=== PATIENT | male | born 1950 | race Caucasian/White ===

== ENCOUNTER 2018-01-10 23:47 | Emergency (ER) | payer MEDICARE, OTHER ==
--- NOTE | 2018-01-10 23:57 | EDM.PDOC ---
ED HPI GENERAL MEDICAL PROBLEM - General Chief Complaint: Abdominal Pain Stated Complaint: STOMACH PAIN/SORE THROAT Time Seen by Provider: 01/11/18 01:00 - History of Present Illness INITIAL COMMENTS - FREE TEXT/NARRATIVE: HISTORY AND PHYSICAL: History of present illness: Patient is a 67-year-old male presents with a concern of upper abdominal pain this is poorly localized associated shortness of breath nausea or vomiting denies diarrhea he states that some [place] in the past with an extensive workup including cardiac it was negative patient states tonight also is concern of sore throat and acknowledges that he is extremely anxious Review of systems: As per history of present illness and below otherwise all systems reviewed and negative. Past medical history: As per history of present illness and as reviewed below otherwise noncontributory. Surgical history: As per history of present illness and as reviewed below otherwise noncontributory. Social history: No reported history of drug or alcohol abuse. Family history: As per history of present illness and as reviewed below otherwise noncontributory. Physical exam: HEENT: Atraumatic, normocephalic, pupils reactive, negative for conjunctival pallor or scleral icterus, mucous membranes moist, throat clear, neck supple, nontender, trachea midline. Lungs: Clear to auscultation, breath sounds equal bilaterally, chest nontender. Heart: S1S2, regular, negative for clicks, rubs, or JVD. Abdomen: Soft, nondistended, nontender. Negative for masses or hepatosplenomegaly. Negative for costovertebral tenderness. Pelvis: Stable nontender. Genitourinary: Deferred. Rectal: Deferred. Extremities: Atraumatic, negative for cords or calf pain. Neurovascular unremarkable. Neuro: Awake, alert, oriented. Cranial nerves II through XII unremarkable. Cerebellum unremarkable. Motor and sensory unremarkable throughout. Exam nonfocal. Diagnostics: CBC CMP troponin PT/INR lipase chest x-ray EKG CT abdomen and pelvis and rapid strep Therapeutics: IV O2 monitor Impression: #1 abdominal pain #2 sore throat Definitive disposition and diagnosis as appropriate pending reevaluation and review of above. abdomen Pain Score (Numeric/FACES): 8 - Related Data Allergies Allergy/AdvReac Type Severity Reaction Status Date / Time No Known Allergies Allergy Verified 01/10/18 23:55 Home Meds: Home Meds . [No Known Home Meds] 11/05/16 [History] Past Medical History HEENT History: Reports: Impaired Vision Respiratory History: Reports: Other (See Below) Other Respiratory History: none - Past Surgical History Musculoskeletal Surgical History: Reports: Shoulder Surgery, Other (See Below) Social & Family History - Family History Family Medical History: Noncontributory - Tobacco Use Smoking Status *Q: Former Smoker - Recreational Drug Use Recreational Drug Use: No ED ROS GENERAL - Review of Systems Review Of Systems: ROS reveals no pertinent complaints other than HPI. ED EXAM, GENERAL - Physical Exam Exam: See Below (See dictation) Course - Vital Signs Last Recorded V/S: Last Vital Signs Temp 36.4 C 01/11/18 01:12 Pulse 83 01/11/18 01:12 Resp 20 01/11/18 01:12 BP 136/91 H 01/11/18 01:12 Pulse Ox 96 01/11/18 01:12 - Orders/Labs/Meds Orders: Active Orders 24 hr Category Date Time Status EKG Documentation Completion [RC] STAT Care 01/10/18 23:56 Active Abdomen Pelvis wo Cont [CT] Stat Exams 01/11/18 00:07 Taken Chest 1V Frontal [CR] Stat Exams 01/10/18 23:56 Taken CULTURE STREP A CONFIRMATION [RM] Stat Lab 01/11/18 00:00 Results STREP SCRN A RAPID W CULT CONF [RM] Stat Lab 01/11/18 00:00 Ordered UA W/MICROSCOPIC [URIN] Stat Lab 01/11/18 00:43 Ordered Labs: Laboratory Tests 01/11/18 01/11/18 01/11/18 Range/Units 00:03 00:03 00:03 WBC 8.44 (4.0-11.0) K/uL RBC 5.40 (4.50-5.90) M/uL Hgb 16.7 (13.0-17.0) g/dL Hct 49.0 (38.0-50.0) % MCV 90.7 (80.0-98.0) fL MCH 30.9 (27.0-32.0) pg MCHC 34.1 (31.0-37.0) g/dL RDW Std Deviation 39.8 (28.0-62.0) fl RDW Coeff of Silva 12 (11.0-15.0) % Plt Count 262 (150-400) K/uL MPV 9.60 (7.40-12.00) fL Neut % (Auto) 64.7 (48.0-80.0) % Lymph % (Auto) 25.6 (16.0-40.0) % [place] % (Auto) 9.1 (0.0-15.0) % Eos % (Auto) 0.2 (0.0-7.0) % Baso % (Auto) 0.4 (0.0-1.5) % Neut # (Auto) 5.5 (1.4-5.7) K/uL Lymph # (Auto) 2.2 (0.6-2.4) K/uL [place] # (Auto) 0.8 (0.0-0.8) K/uL Eos # (Auto) 0.0 (0.0-0.7) K/uL Baso # (Auto) 0.0 (0.0-0.1) K/uL INR 0.97 Sodium 139 (136-148) mmol/L Potassium 3.7 (3.5-5.1) mmol/L Chloride 103 (98-107) mmol/L Carbon Dioxide 24.0 (21.0-32.0) mmol/L BUN 13 (7.0-18.0) mg/dL Creatinine 1.0 (0.8-1.3) mg/dL Est Cr Clr Drug Dosing 84.48 mL/min Estimated GFR (MDRD) > 60.0 ml/min Glucose 133 H (74-106) mg/dL Calcium 9.2 (8.5-10.1) mg/dL Total Bilirubin 1.1 H (0.2-1.0) mg/dL AST 56 H (15-37) IU/L ALT 45 (14-63) IU/L Alkaline Phosphatase 61 (46-116) U/L Troponin I < 0.050 (0.000-0.056) ng/mL Total Protein 7.7 (6.4-8.2) g/dL Albumin 3.9 (3.4-5.0) g/dL Globulin 3.8 H (2.0-3.5) g/dL Albumin/Globulin Ratio 1.0 L (1.3-2.8) Lipase 138 (73-393) U/L Urine Color Urine Appearance Urine pH (5.0-8.0) Ur Specific Raven (1.001-1.035) Urine Protein (NEGATIVE) mg/dL Urine Glucose (UA) (NEGATIVE) mg/dL Urine Ketones (NEGATIVE) mg/dL Urine Occult Blood (NEGATIVE) Urine Nitrite (NEGATIVE) Urine Bilirubin (NEGATIVE) Urine Ictotest Urine Urobilinogen (<2.0) EU/dL Ur Leukocyte Esterase (NEGATIVE) Urine RBC (0-2/HPF) Urine WBC (0-5/HPF) Ur Epithelial Cells (NONE-FEW) Urine Bacteria (NEGATIVE) Urine Mucus (NONE-MOD) 01/11/18 Range/Units 00:43 WBC (4.0-11.0) K/uL RBC (4.50-5.90) M/uL Hgb (13.0-17.0) g/dL Hct (38.0-50.0) % MCV (80.0-98.0) fL MCH (27.0-32.0) pg MCHC (31.0-37.0) g/dL RDW Std Deviation (28.0-62.0) fl RDW Coeff of Silva (11.0-15.0) % Plt Count (150-400) K/uL MPV (7.40-12.00) fL Neut % (Auto) (48.0-80.0) % Lymph % (Auto) (16.0-40.0) % [place] % (Auto) (0.0-15.0) % Eos % (Auto) (0.0-7.0) % Baso % (Auto) (0.0-1.5) % Neut # (Auto) (1.4-5.7) K/uL Lymph # (Auto) (0.6-2.4) K/uL [place] # (Auto) (0.0-0.8) K/uL Eos # (Auto) (0.0-0.7) K/uL Baso # (Auto) (0.0-0.1) K/uL INR Sodium (136-148) mmol/L Potassium (3.5-5.1) mmol/L Chloride (98-107) mmol/L Carbon Dioxide (21.0-32.0) mmol/L BUN (7.0-18.0) mg/dL Creatinine (0.8-1.3) mg/dL Est Cr Clr Drug Dosing mL/min Estimated GFR (MDRD) ml/min Glucose (74-106) mg/dL Calcium (8.5-10.1) mg/dL Total Bilirubin (0.2-1.0) mg/dL AST (15-37) IU/L ALT (14-63) IU/L Alkaline Phosphatase (46-116) U/L Troponin I (0.000-0.056) ng/mL Total Protein (6.4-8.2) g/dL Albumin (3.4-5.0) g/dL Globulin (2.0-3.5) g/dL Albumin/Globulin Ratio (1.3-2.8) Lipase (73-393) U/L Urine Color YELLOW Urine Appearance CLEAR Urine pH 5.5 (5.0-8.0) Ur Specific [place] >= 1.030 (1.001-1.035) Urine Protein TRACE (NEGATIVE) mg/dL Urine Glucose (UA) NEGATIVE (NEGATIVE) mg/dL Urine Ketones 15 H (NEGATIVE) mg/dL Urine Occult Blood TRACE-INTACT (NEGATIVE) Urine Nitrite NEGATIVE (NEGATIVE) Urine Bilirubin SMALL H (NEGATIVE) Urine Ictotest NEGATIVE Urine Urobilinogen 0.2 (<2.0) EU/dL Ur Leukocyte Esterase NEGATIVE (NEGATIVE) Urine RBC 0-1 (0-2/HPF) Urine WBC 0-1 (0-5/HPF) Ur Epithelial Cells RARE (NONE-FEW) Urine Bacteria FEW (NEGATIVE) Urine Mucus MODERATE (NONE-MOD) Departure - Departure Time of Disposition: 06:38 Disposition: Home, Self-Care 01 Clinical Impression: Cholelithiasis - Discharge Information Instructions: Cholelithiasis, [id number] Referrals: PCP,None [Primary Care Provider] - Forms: ED Department Discharge Additional Instructions: Push fluids, avoid fried/fatty foods. Follow up with general surgery within the next week[place] [address] - My Orders Last 24 Hours: My Active Orders 01/10/18 23:56 EKG Documentation Completion [RC] STAT Chest 1V Frontal [CR] Stat 01/11/18 00:00 CULTURE STREP A CONFIRMATION [RM] Stat STREP SCRN A RAPID W CULT CONF [RM] Stat 01/11/18 00:07 Abdomen Pelvis wo Cont [CT] Stat 01/11/18 00:43 UA W/MICROSCOPIC [URIN] Stat - Assessment/Plan Last 24 Hours: My Active Orders 01/10/18 23:56 EKG Documentation Completion [RC] STAT Chest 1V Frontal [CR] Stat 01/11/18 00:00 CULTURE STREP A CONFIRMATION [RM] Stat STREP SCRN A RAPID W CULT CONF [RM] Stat 01/11/18 00:07 Abdomen Pelvis wo Cont [CT] Stat 01/11/18 00:43 UA W/MICROSCOPIC [URIN] Stat
[2018-01-11 00:47] LABS: CHLORIDE,CL 103 mmol/L (98-107); SODIUM,NA 139 mmol/L (136-148)
[2018-01-11 01:13] VITALS: BP 136/91
--- NOTE | 2018-01-11 13:14 | CR ---
EXAM DATE: 01/10/18 PATIENT'S AGE: 67 Patient: YAJAIRA ARDON Facility: [place], [place] Site . Site : 1950 Study: XRay Chest [id number]/17/2018 12:10:44 AM Ordering Physician: Shanique Morse Final Report: Indication: Generalized abdominal pain, chest pain Technique: Chest 1 view Comparison: November 05, 2016. Findings/Impression: Stable cardiomediastinal silhouette. Low lung volumes. No focal infiltrate, effusion, or pneumothorax. Dictated by Jenn Burch MD @ Jan 11 2018 12:12AM (Electronic Signature) Report Signed by Proxy. TAWNYA
--- NOTE | 2018-01-11 13:16 | CT ---
EXAM DATE: 01/10/18 PATIENT'S AGE: 67 Patient: YAJAIRA ARDON Facility: [place], [place] Site . Site : 1950 Study: CT Abdomen/Pelvis W/O [id number]/17/2018 12:28:12 AM Ordering Physician: Shanique Morse Final Report: INDICATION: Right upper quadrant. TECHNIQUE: CT abdomen and pelvis without contrast. COMPARISON: None FINDINGS: Lower chest: Unremarkable. Liver: Unremarkable. Spleen: Unremarkable. Pancreas: Unremarkable. Gallbladder and bile ducts: Cholelithiasis. Kidneys: Punctate nonobstructing calculus mid zone right kidney. No hydronephrosis. 3.0 centimeter left renal cyst. Adrenal glands: Unremarkable. GI tract: Unremarkable. Appendix is normal. Vascular structures: Unremarkable. Lymph nodes: Unremarkable. Miscellaneous: Small fat containing umbilical hernia. No free air or significant free fluid. Pelvic Organs: Unremarkable. Bones: Grade 1 anterior listhesis L5 over S1. IMPRESSION: Cholelithiasis and a normal-appearing gallbladder. Normal common bile duct. No findings to explain the patient`s symptoms. Grade 1 anterolisthesis L5 over S1. Punctate nonobstructing calculus mid zone right kidney appear Dictated by Blake Morocho MD @ 01/11/2018 12:39:01 AM Dictated by: Blake Morocho MD @ 01/11/2018 00:39:09 (Electronic Signature) Report Signed by Proxy. [facility]PITALSavita
== END 2018-01-11 01:16 | disposition home or self-care (01) ==
LOC: MW.ED 23:47
DX: K80.20 Calculus of gallbladder without cholecystitis without obstruction (principal); J02.9 Acute pharyngitis, unspecified; Z87.891 Personal history of nicotine dependence
CPT/HCPCS: 71045; 71045-26; 74176; 74176-26; 80053; 81001; 83690; 84484; 85025; 85610; 87081; 87880; 93005; 99283; 99284-25

== ENCOUNTER 2018-02-03 11:27 | Day surgery (SDC) | payer MEDICARE, OTHER ==
[~2018-02-03 11:27] MED LIST: Lactated Ringers 1,000 ML IV SCH; Midazolam 1 MG/ML 2 ML SDV ONE; Ondansetron 4 MG/2 ML SDV ONE; Propofol 200 MG/20 ML SDV ONE; Sodium Chloride 0.9% 10 ML Syringe FLUSH PRN; Sodium Chloride 0.9% 2.5 ML Syringe FLUSH PRN; fentaNYL 100 MCG/2 ML SDV ONE
--- NOTE | 2018-02-03 12:05 | PCM.PREANE ---
Preanesthetic Assessment - Anesthesia/Transfusion/Family Hx Anesthesia History: Prior Anesthesia Without Reaction Family History of Anesthesia Reaction: No Transfusion History: No Prior Transfusion(s) Intubation History: Unknown - Review of Systems General: No Symptoms Pulmonary: No Symptoms Cardiovascular: No Symptoms Gastrointestinal: Difficulty Swallowing Neurological: No Symptoms Other: Reports: None - Physical Assessment Height: 1.88 m Weight: 113.852 kg ASA Class: 2 Mental Status: Alert & Oriented x3 Airway Class: Mallampati = 2 Dentition: Reports: Normal Dentition, [place](s) (upper leftx1, lower rightx1) Thyro-Mental Finger Breadths: 3 Mouth Opening Finger Breadths: 3 ROM/Head Extension: Full Lungs: Clear to Auscultation, Normal Respiratory Effort Cardiovascular: Regular Rate, Regular Rhythm - Allergies Allergies/Adverse Reactions: Allergies Allergy/AdvReac Type Severity Reaction Status Date / Time No Known Allergies Allergy Verified 01/31/18 13:48 - Blood Blood Available: No - Anesthesia Plan Pre-Op Medication Ordered: None - Acknowledgements Anesthesia Type Planned: MAC Pt an Appropriate Candidate for the Planned Anesthesia: Yes Alternatives and Risks of Anesthesia Discussed w Pt/Guardian: Yes Pt/Guardian Understands and Agrees with Anesthesia Plan: Yes PreAnesthesia Questionnaire HEENT History: Reports: Impaired Vision Other HEENT History: wears glasses Respiratory History: Reports: Bronchitis, Recurrent Gastrointestinal History: Reports: Cholelithiasis, GERD, Other (See Below) Other Gastrointestinal History: occasional reflux, epigastric pain due to cholelithiasis Musculoskeletal History: Reports: Arthritis, Other (See Below) (some back pain) Endocrine/Metabolic History: Reports: Obesity/BMI 30+ - Past Surgical History Head Surgeries/Procedures: Reports: None HEENT Surgical History: Reports: Naso-Sinus Surgery, Tonsillectomy Musculoskeletal Surgical History: Reports: Shoulder Surgery, Other (See Below) Other Musculoskeletal Surgeries/Procedures:: knee surgery, ORIF left arm, & rt ulnar nerve surgery - SUBSTANCE USE Smoking Status *Q: Former Smoker Recreational Drug Use History: No - HOME MEDS Home Medications: Home Meds Omeprazole 20 mg PO DAILY 01/31/18 [History] - CURRENT (IN HOUSE) MEDS Current Meds: Current Medications Lactated Ringer's (Ringers, Lactated) 1,000 mls @ 125 mls/hr IV ASDIRECTED [facility] Last Admin: 02/03/18 11:44 Dose: 125 mls/hr Sodium Chloride (Saline Flush) 10 ml FLUSH ASDIRECTED PRN PRN Reason: Keep Vein Open Sodium Chloride (Saline Flush) 2.5 ml FLUSH ASDIRECTED PRN PRN Reason: Keep Vein Open Sodium Chloride (Saline Flush) 10 ml FLUSH ASDIRECTED PRN PRN Reason: Keep Vein Open Sodium Chloride (Saline Flush) 2.5 ml FLUSH ASDIRECTED PRN PRN Reason: Keep Vein Open Discontinued Medications Fentanyl (Sublimaze) Confirm Administered Dose 100 mcg .ROUTE .STK-MED ONE Stop: 02/03/18 11:22 Midazolam HCl (Versed 1 Mg/Ml) Confirm Administered Dose 2 mg .ROUTE .STK-MED ONE Stop: 02/03/18 11:22 Ondansetron HCl (Zofran) Confirm Administered Dose 4 mg .ROUTE .STK-MED ONE Stop: 02/03/18 11:22 Propofol (Diprivan 20 Ml) Confirm Administered Dose 400 mg .ROUTE .STK-MED ONE Stop: 02/03/18 11:22
--- NOTE | 2018-02-03 14:00 | PCM.OPNOTE ---
- General Post-Op/Procedure Note Date of Surgery/Procedure: 02/03/18 Operative Procedure(s): Diagnostic EGD and screening colonoscopy Findings: Normal egd and sigmoid colon polyp Pre Op Diagnosis: Epigastric pain, screening colonoscopy Post-Op Diagnosis: Sigmoid colon polyp Anesthesia Technique: MAC Primary Surgeon: Trena Ojeda Condition: Good
[2018-02-03 14:26] VITALS: BP 139/98
--- NOTE | 2018-02-03 14:52 | OR ---
SURGEON: CALEB BAIN MD DATE OF PROCEDURE: 02/03/2018 PREOPERATIVE DIAGNOSES: 1. Epigastric pain. 2. Screening colonoscopy. POSTOPERATIVE DIAGNOSES: 1. Normal esophagogastroduodenoscopy. 2. Sigmoid colon polyp. PROCEDURES PERFORMED: Diagnostic esophagogastroduodenoscopy and screening colonoscopy. ANESTHESIA: MAC. INSTRUMENT USED: Olympus endoscope and colonoscope. EXTENT OF THE EXAM: To the second portion of duodenum, to the cecum. PREPARATION: Good. LIMITATIONS: None. INDICATION FOR EXAMINATION: The patient is a 67-year-old male, who presented to the emergency room with severe epigastric pain. Workup revealed cholelithiasis; however, his symptoms were concerning for gastritis or peptic ulcer disease. The patient has never had a colonoscopy. We discussed doing a diagnostic EGD and a screening colonoscopy at the same time. We discussed the procedures as well as expected perioperative course. We discussed the risks including bleeding, infection, or damage to surrounding structures including perforation. The patient verbalized understanding and wishes to proceed. PROCEDURE IN DETAIL: The patient was brought to the endoscopy suite and placed in a left lateral decubitus position. A time-out was completed verifying the patient's name, age, date of , allergies, and procedure to be performed. Monitored anesthesia care was induced and continuous oxygen was provided via nasal cannula. A bite block was placed in the patient's mouth before falling asleep. After adequate sedation was achieved, a well lubricated endoscope was placed in the patient's mouth and advanced under direct visualization to the level of the second portion of the duodenum. This appeared normal and a photograph was taken. The scope was then fully withdrawn while examining the color, texture, anatomy, and integrity of the mucosa of the upper GI tract. Intestinal mucosa appeared normal. The scope was brought into the stomach and a photograph was taken of the pylorus as well as the GE junction. Both appeared normal. There was no evidence of any ulceration or inflammation in the stomach. Biopsies were taken of the gastric antrum, body, and fundus, and sent for histologic review. The scope was brought into the distal esophagus, and a photograph taken of the GE junction. This appeared normal. There was no evidence of esophagitis along the distal esophagus. The remainder of the esophageal mucosa was free of pathology. The scope was removed and this portion of procedure terminated. A digital rectal exam was performed. This exam was within normal limits. A well lubricated colonoscope was inserted into the rectum and advanced under direct visualization to the level of the cecum. The cecum was identified by both visual and anatomic landmarks. A photograph was taken of the cecal cap. Due to looping of the scope more proximally, I was unable to retroflex the scope within the cecum. The scope was then fully withdrawn while examining the color, texture, anatomy, and integrity of the mucosa from the cecum to the anal canal. The patient was found to have a small 2 to 3 mm sessile polyp within the sigmoid colon. This was removed using a cold biopsy forceps. The scope was then brought into the rectum and retroflexed to allow visualization of the anal canal opening. This appeared normal and a photograph was taken. The scope was then straightened out and fully withdrawn. The cecum to anus time was 9 minutes. The patient tolerated procedure well and taken to PACU in stable condition. ENDOSCOPIC DIAGNOSES: 1. Normal esophagogastroduodenoscopy. 2. Sigmoid colon polyp. RECOMMENDATIONS: Follow up in clinic in 2 weeks. The patient will undergo a laparoscopic cholecystectomy on the of this month. GORDON GARRISON /[id number]
== END 2018-02-03 14:20 | disposition home or self-care (01) ==
LOC: MW.SDS 11:27
PROVIDERS: ATTEND Surgery
DX: R10.13 Epigastric pain (principal); Z12.11 Encounter for screening for malignant neoplasm of colon; D12.5 Benign neoplasm of sigmoid colon; K80.20 Calculus of gallbladder without cholecystitis without obstruction; I25.10 Atherosclerotic heart disease of native coronary artery without angina pectoris; K21.9 Gastro-esophageal reflux disease without esophagitis; Z87.891 Personal history of nicotine dependence; Z79.899 Other long term (current) drug therapy
CPT/HCPCS: 43239; 45380; J2250; J2405; J3010; J7120; J2704

== ENCOUNTER 2018-02-10 07:10 | Day surgery (SDC) | payer MEDICARE, OTHER ==
[~2018-02-10 07:10] MED LIST changes: -Midazolam 1 MG/ML 2 ML SDV ONE; -Ondansetron 4 MG/2 ML SDV ONE; -Propofol 200 MG/20 ML SDV ONE; +ceFAZolin 2 GM in Premix Bag 1 BAG IV ONE; -fentaNYL 100 MCG/2 ML SDV ONE
[2018-02-10] MEDS ORDERED: Bupivacaine 0.5% 30 ML SDV ONE (07:23)
[2018-02-10] MEDS ORDERED: Lidocaine 2% 5 ML SDV ONE (07:30)
[2018-02-10] MEDS ORDERED: fentaNYL 100 MCG/2 ML SDV ONE (07:30)
[2018-02-10] MEDS ORDERED: Propofol 200 MG/20 ML SDV ONE (07:30)
[2018-02-10] MEDS ORDERED: Midazolam 1 MG/ML 2 ML SDV ONE (07:31)
[2018-02-10] MEDS ORDERED: Rocuronium 10 MG/ML 10 ML Syringe ONE (07:32)
[2018-02-10] MEDS ORDERED: Neostigmine Methylsulfate 1 MG/ML 5 ML Syringe ONE (07:32)
[2018-02-10] MEDS ORDERED: Ondansetron 4 MG/2 ML SDV ONE ×2 (07:32→08:06)
[2018-02-10] MEDS ORDERED: Glycopyrrolate 0.2 MG/ML SDV ONE (07:32)
[2018-02-10] MEDS ORDERED: Ketorolac 30 MG/ML SDV ONE (07:32)
[2018-02-10] MEDS ORDERED: cefOXitin 0 ML ONE (07:41)
[2018-02-10] MEDS ORDERED: ceFAZolin/Dextrose,Iso-Osmotic 2 GM/50 ML Duplex Bag IV ONE (07:41)
--- NOTE | 2018-02-10 07:42 | PCM.PREANE ---
Preanesthetic Assessment - Anesthesia/Transfusion/Family Hx Anesthesia History: Prior Anesthesia Reaction Type of Anesthesia Reaction: Excessive Nausea/Vomiting Family History of Anesthesia Reaction: No Transfusion History: No Prior Transfusion(s) Intubation History: Unknown - Review of Systems General: No Symptoms Pulmonary: No Symptoms Cardiovascular: No Symptoms Gastrointestinal: No Symptoms Neurological: No Symptoms Other: Reports: None - Physical Assessment O2 Sat by Pulse Oximetry: 93 Respiratory Rate: 16 Vital Signs: Last Vital Signs Temp 36 C 02/10/18 07:17 Pulse 82 02/10/18 07:17 Resp 16 02/10/18 07:17 BP 137/91 H 02/10/18 07:17 Pulse Ox 93 L 02/10/18 07:17 Height: 1.88 m Weight: 113.852 kg ASA Class: 2 Mental Status: Alert & Oriented x3 Dentition: Reports: Normal Dentition Lungs: Clear to Auscultation, Normal Respiratory Effort Cardiovascular: Regular Rate, Regular Rhythm - Allergies Allergies/Adverse Reactions: Allergies Allergy/AdvReac Type Severity Reaction Status Date / Time No Known Allergies Allergy Verified 02/07/18 10:34 - Anesthesia Plan Pre-Op Medication Ordered: None - Acknowledgements Anesthesia Type Planned: General Anesthesia Pt an Appropriate Candidate for the Planned Anesthesia: Yes Alternatives and Risks of Anesthesia Discussed w Pt/Guardian: Yes Pt/Guardian Understands and Agrees with Anesthesia Plan: Yes Additional Comments: PMH: heartburn without reflux sx. HLD, Has had PONV with one of his ortho surgeries PreAnesthesia Questionnaire HEENT History: Reports: Impaired Vision, Other (See Below) Other HEENT History: wears glasses Respiratory History: Reports: Other (See Below) Other Respiratory History: none Gastrointestinal History: Reports: Cholelithiasis Other Gastrointestinal History: occasional reflux, epigastric pain due to cholelithiasis Genitourinary History: Reports: None Musculoskeletal History: Reports: Fracture Endocrine/Metabolic History: Reports: Obesity/BMI 30+ - Past Surgical History Head Surgeries/Procedures: Reports: None HEENT Surgical History: Reports: Tonsillectomy GI Surgical History: Reports: Colonoscopy, EGD Musculoskeletal Surgical History: Reports: ORIF, Other (See Below) Other Musculoskeletal Surgeries/Procedures:: knee sx - SUBSTANCE USE Smoking Status *Q: Former Smoker Tobacco Use Within Last Twelve Months: No Recreational Drug Use History: No - HOME MEDS Home Medications: Home Meds Omeprazole 20 mg PO ASDIRECTED PRN 01/31/18 [History] - CURRENT (IN HOUSE) MEDS Current Meds: Current Medications Sodium Chloride (Saline Flush) 10 ml FLUSH ASDIRECTED PRN PRN Reason: Keep Vein Open Sodium Chloride (Saline Flush) 2.5 ml FLUSH ASDIRECTED PRN PRN Reason: Keep Vein Open Discontinued Medications Bupivacaine HCl (Marcaine 0.5%) Confirm Administered Dose 30 ml .ROUTE .STK-MED ONE Stop: 02/10/18 07:24 Fentanyl (Sublimaze) Confirm Administered Dose 500 mcg .ROUTE .STK-MED ONE Stop: 02/10/18 07:31 Glycopyrrolate (Robinul) Confirm Administered Dose 0.6 mg .ROUTE .STK-MED ONE Stop: 02/10/18 07:33 Cefazolin Sodium/Dextrose 2 gm (/ Premix) 50 mls @ 100 mls/hr IV ONETIME ONE Stop: 02/09/18 13:28 Lactated Ringer's (Ringers, Lactated) 1,000 mls @ 125 mls/hr IV ASDIRECTED [facility] Ketorolac Tromethamine (Toradol) Confirm Administered Dose 30 mg .ROUTE .STK- MED ONE Stop: 02/10/18 07:33 Lidocaine (Xylocaine-Mpf 2%) Confirm Administered Dose 10 ml .ROUTE .STK-MED ONE Stop: 02/10/18 07:31 Midazolam HCl (Versed 1 Mg/Ml) Confirm Administered Dose 2 mg .ROUTE .STK-MED ONE Stop: 02/10/18 07:32 Neostigmine Methylsulfate (Neostigmine) Confirm Administered Dose 5 mg .ROUTE .STK-MED ONE Stop: 02/10/18 07:33 Ondansetron HCl (Zofran) Confirm Administered Dose 4 mg .ROUTE .STK-MED ONE Stop: 02/10/18 07:33 Propofol (Diprivan 20 Ml) Confirm Administered Dose 400 mg .ROUTE .STK-MED ONE Stop: 02/10/18 07:31 Rocuronium [place] (Zemuron) Confirm Administered Dose 100 mg .ROUTE .STK-MED ONE Stop: 02/10/18 07:33
[2018-02-10] MEDS ORDERED: Labetalol 100 MG/20 ML MDV ONE (08:05)
[2018-02-10] MEDS ORDERED: ePHEDrine 50 MG/ML SDV ONE (08:15)
[2018-02-10] MEDS ORDERED: fentaNYL 100 MCG/2 ML SDV IVPUSH PRN (08:24)
[2018-02-10] MEDS ORDERED: Sugammadex Sodium 200 MG/2 ML VIAL ONE (08:55)
[2018-02-10] MEDS ORDERED: Acetaminophen/oxyCODONE 325-5 MG Tab PO PRN (09:24)
--- NOTE | 2018-02-10 09:27 | PCM.OPNOTE ---
<Isaiah Stone Z - Last Filed: 02/10/18 09:25> - General Post-Op/Procedure Note Date of Surgery/Procedure: 02/10/18 Operative Procedure(s): Lap Melly Anesthesia Technique: General LMA Primary Surgeon: Trena Ojeda Fluid Replacement, Intraop: 1,200 EBL in mLs: 10 Condition: Good <Trena Ojeda M - Last Filed: 02/10/18 09:42> - General Post-Op/Procedure Note Findings: Normal appearing gallbladder Pre Op Diagnosis: Symptomatic cholelithiasis Post-Op Diagnosis: same Anesthesia Technique: General ET Tube Output, Urine Amount: 30 Free Text/Narrative:: Intake & Output 02/09/18 02/10/18 02/10/18 22:59 06:59 14:59 Intake Total 3100 Balance 3100
--- NOTE | 2018-02-10 09:36 | PCM.POSTAN ---
POST ANESTHESIA ASSESSMENT - MENTAL STATUS Mental Status: Alert, Oriented - VITAL SIGNS Pulse Rate: 77 SaO2: 94 (room air) Resp Rate: 16 Blood Pressure: 131/91 - RESPIRATORY Respiratory Status: Respiratory Rate WNL, Airway Patent, O2 Saturation Stable - CARDIOVASCULAR CV Status: Pulse Rate WNL, Blood Pressure Stable, Elevated Blood Pressure Free Text/Narrative:: bp slightly elevated at 131/91 had labetalol 7.5 after intubation will go to pahase 2 and let him settle and monitor - GASTROINTESTINAL GI Status: No Symptoms - PAIN Pain Score: 0 - POST OP HYDRATION Hydration Status: Adequate & Stable
--- NOTE | 2018-02-10 10:21 | OR ---
SURGEON: CALEB BAIN MD DATE OF PROCEDURE: 02/10/2018 PREOPERATIVE DIAGNOSIS: Symptomatic cholelithiasis. POSTOPERATIVE DIAGNOSIS: Symptomatic cholelithiasis. PROCEDURE PERFORMED: Laparoscopic cholecystectomy. SCAFFOLD WORKER: salon shampoo assistant: Isaiah Stone MD., residential leasing manager. ANESTHESIA: General endotracheal anesthesia. FLUIDS: 1800 mL of crystalloid. ESTIMATED BLOOD LOSS: 10 mL. URINE OUTPUT: 30 mL. FINDINGS: Normal appearing gallbladder. COMPLICATIONS: None. INDICATIONS: The patient is a 67-year-old male, who presented to the emergency room with severe epigastric pain. A CT scan of the abdomen showed cholelithiasis. A thorough workup was performed including an EGD to rule out peptic ulcer disease and gastritis. The diagnosis of symptomatic cholelithiasis was made. The patient and I discussed the pathophysiology of biliary disease. We discussed the need for cholecystectomy. We discussed the laparoscopic and open approaches. Should I be unable to perform it safely laparoscopically, we would convert to open. The patient and I discussed the expected perioperative course, and risks including bleeding, infection, or damage to surrounding structures. The patient verbalized understanding and wishes to proceed. PROCEDURE IN DETAIL: The patient was brought in to the OR, placed on the OR table in supine position. A time-out was completed verifying the patient's name, age, date of , allergies, and procedure to be performed. Monitored general endotracheal anesthesia was induced. The left arm was tucked to the patient's side and a Hackett catheter placed. The abdomen was prepped and draped in usual standard fashion. The infraumbilical fold was first anesthetized with 0.5% Marcaine plain. An 11 blade was used to make an incision along the infraumbilical fold. Cautery was used to dissect down to the level of subcutaneous fat. Retractors were used to bluntly dissect down to the level of fascia. The fascia was elevated with Brendon's and incised sharply with curved De La Rosa scissors. Entry into the abdomen was palpated and a 12 mm Denise trocar was placed in the abdomen. Stay sutures were placed on either side of the fascia using 0 Vicryl suture. The abdomen was insufflated to a pressure of 13 mmHg. A 5 mm, 30- degree scope was inserted in the abdomen and I inspected the area underneath my initial trocar placement. There was no damage to surrounding structures noted. The patient was then placed into reverse Trendelenburg position and airplaned slightly to the left. 5 mm trocars were placed in the following locations, one in the epigastric area, one in the right flank, and one along two fingerbreadths below the right subcostal margin in the midclavicular line. The dome of the gallbladder was grasped with an atraumatic grasper through the right flank port and lifted above the liver. This exposed the infundibulum. The patient's gallbladder was lying somewhat laterally. Because of this, I first started my dissection along the lateral border of the body of the gallbladder. Doing this, I was then able to clear away the peritoneal attachments along the back wall of the cystic duct and artery. I then manipulated the gallbladder such that I could see the medial side of the infundibulum. Using combination of blunt dissection and hook cautery, I was then able to clear away the tissue around the cystic duct and artery. Once my critical view was achieved, I then doubly clipped and ligated the cystic duct and artery. The gallbladder was then removed from the gallbladder fossa using electrocautery. A small rent was made in the gallbladder wall and clear bile was spilled in the abdomen. Once the gallbladder was completely freed up from the liver, it was placed in an EndoCatch bag and removed through the infraumbilical port site. The 12 mm Denise trocar was replaced and I inspected my operative field. He appeared to be hemostatic. I then irrigated the abdomen with normal saline until it ran clear. The 5 mm trocars were removed under direct visualization. The abdomen was allowed to desufflate and the 12 mm trocar was removed. The fascia at the infraumbilical port site was closed with interrupted 0 Vicryl sutures. The subcutaneous fat was closed with interrupted 3-0 Vicryl suture. The skin was closed with a running 4-0 Monocryl stitch. The port sites were then closed with interrupted 4-0 Monocryl stitches. The Steri-Strips and sterile dressings were applied. The patient tolerated the procedure well and was taken to PACU in stable condition. GORDON GARRISON /[id number]
[2018-02-10 11:40] VITALS: BP 131/91
--- NOTE | 2018-02-10 11:40 | PCM48HPAN ---
Post Anesthesia Note - EVALUATION WITHIN 48HRS OF ANESTHETIC Vital Signs in Normal Range: Yes Patient Participated in Evaluation: Yes Respiratory Function Stable: Yes Airway Patent: Yes Cardiovascular Function Stable: Yes Hydration Status Stable: Yes Pain Control Satisfactory: Yes Nausea and Vomiting Control Satisfactory: Yes Mental Status Recovered: Yes Pulse Rate: 77 Resp Rate: 14 Blood Pressure: 131/91
== END 2018-02-10 11:10 | disposition home or self-care (01) ==
LOC: MW.SDS 07:10
PROVIDERS: ATTEND Surgery
DX: K80.10 Calculus of gallbladder with chronic cholecystitis without obstruction (principal); E78.5 Hyperlipidemia, unspecified; K21.9 Gastro-esophageal reflux disease without esophagitis; E66.9 Obesity, unspecified; Z68.32 Body mass index [BMI] 32.0-32.9, adult; Z90.89 Acquired absence of other organs; Z87.891 Personal history of nicotine dependence
CPT/HCPCS: J0690; J1885; J2250; J2405; J2704; J3010; J3490

== ENCOUNTER 2018-06-12 13:10 | Emergency (ER) | payer MEDICARE, OTHER ==
[2018-06-12 13:38] VITALS: BP 147/92
[2018-06-12] MEDS ORDERED: Alum Hydrox/Mag Hydrox/Simeth 15 ML, Lidocaine 2% 5 ML PO ONE ×2 (13:45)
--- NOTE | 2018-06-12 13:53 | EDM.PDOC ---
ED HPI GENERAL MEDICAL PROBLEM - General Chief Complaint: Abdominal Pain Stated Complaint: PROBLEMS WITH STOMACH AND IS VERY SHAKY Time Seen by Provider: 06/12/18 13:26 Source of Information: Reports: Patient History Limitations: Reports: No Limitations - History of Present Illness INITIAL COMMENTS - FREE TEXT/NARRATIVE: History of present illness: []Patient has been drinking alcohol since 3 AM and awoke with epigastric pain. He denies any vomiting, diarrhea, fevers or chills. Review of systems: As per history of present illness and below otherwise all systems reviewed and negative. Past medical history: As per history of present illness and as reviewed below otherwise noncontributory. Surgical history: As per history of present illness and as reviewed below otherwise noncontributory. Social history: No reported history of drug or alcohol abuse. Family history: As per history of present illness and as reviewed below otherwise noncontributory. Physical exam: General: Well developed, well nourished in NAD HEENT: Atraumatic, normocephalic, pupils reactive, negative for conjunctival pallor or scleral icterus, mucous membranes moist, throat clear, neck supple, nontender, trachea midline. Lungs: Clear to auscultation, breath sounds equal bilaterally, chest nontender. Heart: S1S2, regular, negative for clicks, rubs, or JVD. Abdomen: Soft, nondistended, nontender. Negative for masses or hepatosplenomegaly. Negative for costovertebral tenderness. Pelvis: Stable nontender. Genitourinary: Deferred. Rectal: Deferred. Extremities: Atraumatic, negative for cords or calf pain. Neurovascular unremarkable. Neuro: Awake, alert, oriented. Cranial nerves II through XII unremarkable. Cerebellum unremarkable. Motor and sensory unremarkable throughout. Exam nonfocal. Skin:warm and dry Diagnostics: Therapeutics: ED Course: Impression: Prescriptions: Plan: Definitive disposition and diagnosis as appropriate pending reevaluation and review of above. upper abd Pain Score (Numeric/FACES): 10 - Related Data Allergies Allergy/AdvReac Type Severity Reaction Status Date / Time levofloxacin [From Levaquin] Allergy Rash Verified 02/10/18 07:48 Home Meds: Home Meds . [No Known Home Meds] 06/12/18 [History] Past Medical History HEENT History: Reports: Impaired Vision Other HEENT History: wears glasses Cardiovascular History: Reports: None Respiratory History: Reports: None, Other (See Below) Other Respiratory History: none Gastrointestinal History: Reports: Cholelithiasis, GERD, Other (See Below) Other Gastrointestinal History: occasional reflux, epigastric pain due to cholelithiasis Genitourinary History: Reports: None Musculoskeletal History: Reports: Arthritis, Other (See Below) Endocrine/Metabolic History: Reports: Obesity/BMI 30+ - Infectious Disease History Infectious Disease History: Reports: Chicken Pox, Measles - Past Surgical History Head Surgeries/Procedures: Reports: None HEENT Surgical History: Reports: Naso-Sinus Surgery, Tonsillectomy Cardiovascular Surgical History: Reports: None Musculoskeletal Surgical History: Reports: Shoulder Surgery, Other (See Below) Social & Family History - Family History Family Medical History: Noncontributory - Tobacco Use Smoking Status *Q: Never Smoker Second Hand Smoke Exposure: No - Caffeine Use Caffeine Use: Reports: Soda - Alcohol Use Days Per Week of Alcohol Use: 7 Number of Drinks Per Day: 5 Total Drinks Per Week: 35 Date of Last Drink: 06/11/18 - Recreational Drug Use Recreational Drug Use: No ED ROS GENERAL - Review of Systems Review Of Systems: ROS reveals no pertinent complaints other than HPI. ED EXAM, GI/ABD - Physical Exam Exam: See Below (See history of present illness) Course - Vital Signs Last Recorded V/S: Last Vital Signs Temp 97.2 F 06/12/18 13:34 Pulse 81 06/12/18 13:34 Resp 15 06/12/18 13:34 BP 147/92 H 06/12/18 13:34 Pulse Ox 95 06/12/18 13:34 - Orders/Labs/Meds Labs: Laboratory Tests 06/12/18 06/12/18 06/12/18 Range/Units 14:12 14:12 14:12 WBC 7.79 (4.0-11.0) K/uL RBC 4.83 (4.50-5.90) M/uL Hgb 15.0 (13.0-17.0) g/dL Hct 43.6 (38.0-50.0) % MCV 90.3 (80.0-98.0) fL MCH 31.1 (27.0-32.0) pg MCHC 34.4 (31.0-37.0) g/dL RDW Std Deviation 41.6 (28.0-62.0) fl RDW Coeff of Silva 13 (11.0-15.0) % Plt Count 218 (150-400) K/uL MPV 9.40 (7.40-12.00) fL Neut % (Auto) 76.4 (48.0-80.0) % Lymph % (Auto) 14.5 L (16.0-40.0) % Hood % (Auto) 8.7 (0.0-15.0) % Eos % (Auto) 0.0 (0.0-7.0) % Baso % (Auto) 0.4 (0.0-1.5) % Neut # (Auto) 6.0 H (1.4-5.7) K/uL Lymph # (Auto) 1.1 (0.6-2.4) K/uL Hood # (Auto) 0.7 (0.0-0.8) K/uL Eos # (Auto) 0.0 (0.0-0.7) K/uL Baso # (Auto) 0.0 (0.0-0.1) K/uL Nucleated RBC % 0.0 /100WBC Nucleated RBCs # 0 K/uL Sodium 138 (136-148) mmol/L Potassium 4.0 (3.5-5.1) mmol/L Chloride 104 (98-107) mmol/L Carbon Dioxide 24.7 (21.0-32.0) mmol/L BUN 14 (7.0-18.0) mg/dL Creatinine 1.0 (0.8-1.3) mg/dL Est Cr Clr Drug Dosing 83.34 mL/min Estimated GFR (MDRD) > 60.0 ml/min Glucose 114 H (74-106) mg/dL Calcium 8.7 (8.5-10.1) mg/dL Total Bilirubin 1.1 H (0.2-1.0) mg/dL AST 35 (15-37) IU/L ALT 28 (14-63) IU/L Alkaline Phosphatase 56 (46-116) U/L Troponin I < 0.050 (0.000-0.056) ng/mL Total Protein 6.6 (6.4-8.2) g/dL Albumin 3.4 (3.4-5.0) g/dL Globulin 3.2 (2.0-3.5) g/dL Albumin/Globulin Ratio 1.1 L (1.3-2.8) Lipase 152 (73-393) U/L H. pylori IgG Antibody NEGATIVE (NEG) Meds: Medications Discontinued Medications Generic Name Dose Route Start Last Admin Trade Name Freq PRN Reason Stop Dose Admin Al Hydroxide/Mg Hydroxide 15 0 ml 06/12/18 13:45 06/12/18 14:24 ml/ Lidocaine HCl 5 ml PO 06/12/18 13:46 20 each ONETIME ONE Administration Departure - Departure Time of Disposition: 15:04 Disposition: Home, Self-Care 01 Condition: Good Clinical Impression: Alcoholic gastritis Qualifiers: Chronicity: acute Gastritis bleeding: without bleeding Qualified Code(s): K29.20 - Alcoholic gastritis without bleeding - Discharge Information *PRESCRIPTION DRUG MONITORING PROGRAM REVIEWED*: No *COPY OF PRESCRIPTION DRUG MONITORING REPORT IN PATIENT DELMAR: No Referrals: PCP,None [Primary Care Provider] - Forms: ED Department Discharge Additional Instructions: The following information is given to patients seen in the emergency department who are being discharged to home. This information is to outline your options for follow-up care. We provide all patients seen in our emergency department with a follow-up referral. The need for follow-up, as well as the timing and circumstances, are variable depending upon the specifics of your emergency department visit. If you don't have a primary care physician on staff, we will provide you with a referral. We always advise you to contact your personal physician following an emergency department visit to inform them of the circumstance of the visit and for follow-up with them and/or the need for any referrals to a consulting specialist. The emergency department will also refer you to a specialist when appropriate. This referral assures that you have the opportunity for follow-up care with a specialist. All of these measure are taken in an effort to provide you with optimal care, which includes your follow-up. Under all circumstances we always encourage you to contact your private physician who remains a resource for coordinating your care. When calling for follow-up care, please make the office aware that this follow-up is from your recent emergency room visit. If for any reason you are refused follow-up, please contact the [facility] Emergency Department at and asked to speak to the emergency department charge nurse. Stop drinking alcohol, take omeprazole twice a day follow up PMD as directed. DINA [facility] [place] [id number]
[2018-06-12 14:59] LABS: CHLORIDE,CL 104 mmol/L (98-107); SODIUM,NA 138 mmol/L (136-148)
== END 2018-06-12 15:17 | disposition home or self-care (01) ==
LOC: MW.ED 13:10
DX: K29.20 Alcoholic gastritis without bleeding (principal); E66.9 Obesity, unspecified; Z88.1 Allergy status to other antibiotic agents
CPT/HCPCS: 36415; 80053; 83690; 84484; 85025; 86677; 99284; A9270; 93005

== ENCOUNTER 2021-04-06 02:17 | Observation (INO) | payer MEDICARE, OTHER ==
[~2021-04-06 02:17] MED LIST changes: -Lactated Ringers 1,000 ML IV SCH; -Sodium Chloride 0.9% 2.5 ML Syringe FLUSH PRN; -ceFAZolin 2 GM in Premix Bag 1 BAG IV ONE
--- NOTE | 2021-04-06 02:20 | EDM.PDOC ---
ED HPI GENERAL MEDICAL PROBLEM - General Stated Complaint: CHEST PAIN, TROUBLE BREATHING, AIRWAY TROUBLE Time Seen by Provider: 04/06/21 02:17 Source of Information: Reports: Patient History Limitations: Reports: No Limitations - History of Present Illness INITIAL COMMENTS - FREE TEXT/NARRATIVE: 70-year-old male with history of SAMEER on CPAP, gastritis presents with chest pain and shortness of breath. He has had intermittent left-sided nonradiating chest pain for over the past 3 days, he has had 4 episodes which last between minutes to hours, rating 5/10 at its worse. He is currently chest pain-free. Associated symptoms include short of breath and subjective fevers and chills and sweats, swelling to the back of his throat, nausea, diarrhea, generalized malaise. He denies vomiting. He has never had a stress test. ROS: A 10-point review of systems, other than pertinent positives and negatives as stated per HPI, is otherwise negative Past medical history: No additional pertinent history Past Surgical history: No additional pertinent history Social history: No additional pertinent history Family history: No additional pertinent history PHYSICAL EXAM General: AOx4, GCS = 15, No distress HEENT: dry mucous membrane, erythema to posterior oropharynx, Mallampati score = 1 Neck: supple, no meningismus, no Kernig or Brudzinski Cardiac: S1S2 RRR Respiratory: CTAB, no crackles or rales, no wheezing Abdomen: Soft, nontender, no rebound or guarding, nondistended, no pulsatile mass. Back: nontender Musculoskeletal: NVI distally, no deformity Neuro: No focal deficits, CN 2 - 12 WNL. - Related Data Allergies Allergy/AdvReac Type Severity Reaction Status Date / Time levofloxacin [From Levaquin] Allergy Rash Verified 04/06/21 02:45 Home Meds: Home Meds . [No Known Home Meds] 06/12/18 [History] Past Medical History HEENT History: Reports: Impaired Vision Other HEENT History: wears glasses Cardiovascular History: Reports: None Respiratory History: Reports: None, Other (See Below) Other Respiratory History: none Gastrointestinal History: Reports: Cholelithiasis, GERD, Other (See Below) Other Gastrointestinal History: occasional reflux, epigastric pain due to cholelithiasis Genitourinary History: Reports: None Musculoskeletal History: Reports: Arthritis, Other (See Below) Endocrine/Metabolic History: Reports: Obesity/BMI 30+ - Infectious Disease History Infectious Disease History: Reports: Chicken Pox, Measles - Past Surgical History Head Surgeries/Procedures: Reports: None HEENT Surgical History: Reports: Naso-Sinus Surgery, Tonsillectomy Cardiovascular Surgical History: Reports: None Musculoskeletal Surgical History: Reports: Shoulder Surgery, Other (See Below) Social & Family History - Family History Family Medical History: No Pertinent Family History - Caffeine Use Caffeine Use: Reports: Soda ED ROS GENERAL - Review of Systems Review Of Systems: See Below (see dictation) ED EXAM, GENERAL - Physical Exam Exam: See Below (see dictation) #1 Interpretation EKG Interpretation Comments: Heart rate = 80 bpm, normal sinus rhythm, normal QRS interval, no STEMI. EKG and rhythm strip interpreted by me at 0220 Course - Vital Signs Last Recorded V/S: Last Vital Signs Temp 97.1 F 04/06/21 06:00 Pulse 79 04/06/21 06:00 Resp 17 04/06/21 06:00 BP 145/91 H 04/06/21 06:00 Pulse Ox 96 04/06/21 06:00 - Orders/Labs/Meds Orders: Active Orders 24 hr Category Date Time Status Patient Status [ADT] Routine ADT 04/06/21 06:28 Ordered Cardiac Monitoring [RC] . DIRECTED Care 04/06/21 02:17 Active EKG Documentation Completion [RC] STAT Care 04/06/21 02:18 Active Pulse Oximetry [RC] ASDIRECTED Care 04/06/21 02:17 Active LIPID PANEL [CHEM] Stat Lab 04/06/21 05:05 Received Sodium Chloride 0.9% [Saline Flush] Med 04/06/21 02:17 Active 10 ml FLUSH ASDIRECTED PRN Sodium Chloride 0.9% [Saline Flush] Med 04/06/21 02:17 Active 2.5 ml FLUSH ASDIRECTED PRN Saline Lock Insert [OM.PC] Stat Oth 04/06/21 02:18 Ordered Medication Orders Sodium Chloride (Sodium Chloride 0.9% 10 Ml Syringe) 10 ml FLUSH ASDIRECTED PRN PRN Reason: Keep Vein Open Last Admin: 04/06/21 02:44 Dose: 10 ml Documented by: RAFAEL Sodium Chloride (Sodium Chloride 0.9% 2.5 Ml Syringe) 2.5 ml FLUSH ASDIRECTED PRN PRN Reason: Keep Vein Open Last Admin: 04/06/21 02:43 Dose: 2.5 ml Documented by: RAFAEL Labs: Laboratory Tests 04/06/21 04/06/21 04/06/21 Range/Units 02:29 02:31 02:36 WBC 7.25 (4.0-11.0) K/uL RBC 5.11 (4.50-5.90) M/uL Hgb 16.3 (13.0-17.0) g/dL Hct 46.8 (38.0-50.0) % MCV 91.6 (80.0-98.0) fL MCH 31.9 (27.0-32.0) pg MCHC 34.8 (31.0-37.0) g/dL RDW Std Deviation 42.7 (28.0-62.0) fl RDW Coeff of Silva 13 (11.0-15.0) % Plt Count 224 (150-400) K/uL MPV 10.10 (7.40-12.00) fL Neut % (Auto) 67.3 (48.0-80.0) % Lymph % (Auto) 21.7 (16.0-40.0) % Jay % (Auto) 10.5 (0.0-15.0) % Eos % (Auto) 0.1 (0.0-7.0) % Baso % (Auto) 0.4 (0.0-1.5) % Neut # (Auto) 4.9 (1.4-5.7) K/uL Lymph # (Auto) 1.6 (0.6-2.4) K/uL Jay # (Auto) 0.8 (0.0-0.8) K/uL Eos # (Auto) 0.0 (0.0-0.7) K/uL Baso # (Auto) 0.0 (0.0-0.1) K/uL Nucleated RBC % 0.0 /100WBC Nucleated RBCs # 0 K/uL Sodium (136-148) mmol/L Potassium (3.5-5.1) mmol/L Chloride (98-107) mmol/L Carbon Dioxide (21.0-32.0) mmol/L BUN (7.0-18.0) mg/dL Creatinine (0.8-1.3) mg/dL Est Cr Clr Drug Dosing Estimated GFR (MDRD) ml/min Glucose (74-106) mg/dL Calcium (8.5-10.1) mg/dL Total Bilirubin (0.2-1.0) mg/dL AST (15-37) IU/L ALT (14-63) IU/L Alkaline Phosphatase (46-116) U/L Troponin I (0.000-0.056) ng/mL B-Natriuretic Peptide (<100) PG/ML Total Protein (6.4-8.2) g/dL Albumin (3.4-5.0) g/dL Globulin (2.6-4.0) g/dL Albumin/Globulin Ratio (0.9-1.6) SARS-CoV-2 RNA (LUANN) NEGATIVE (NEGATIVE) Group A Strep (PCR) NOT DETECTED (NOT DETECT) 04/06/21 04/06/21 04/06/21 Range/Units 02:36 02:36 05:05 WBC (4.0-11.0) K/uL RBC (4.50-5.90) M/uL Hgb (13.0-17.0) g/dL Hct (38.0-50.0) % MCV (80.0-98.0) fL MCH (27.0-32.0) pg MCHC (31.0-37.0) g/dL RDW Std Deviation (28.0-62.0) fl RDW Coeff of Silva (11.0-15.0) % Plt Count (150-400) K/uL MPV (7.40-12.00) fL Neut % (Auto) (48.0-80.0) % Lymph % (Auto) (16.0-40.0) % Jay % (Auto) (0.0-15.0) % Eos % (Auto) (0.0-7.0) % Baso % (Auto) (0.0-1.5) % Neut # (Auto) (1.4-5.7) K/uL Lymph # (Auto) (0.6-2.4) K/uL Jay # (Auto) (0.0-0.8) K/uL Eos # (Auto) (0.0-0.7) K/uL Baso # (Auto) (0.0-0.1) K/uL Nucleated RBC % /100WBC Nucleated RBCs # K/uL Sodium 141 (136-148) mmol/L Potassium 3.4 L (3.5-5.1) mmol/L Chloride 103 (98-107) mmol/L Carbon Dioxide 24.2 (21.0-32.0) mmol/L BUN 10 (7.0-18.0) mg/dL Creatinine 0.9 (0.8-1.3) mg/dL Est Cr Clr Drug Dosing TNP Estimated GFR (MDRD) > 60.0 ml/min Glucose 117 H (74-106) mg/dL Calcium 8.5 (8.5-10.1) mg/dL Total Bilirubin 1.2 H (0.2-1.0) mg/dL AST 76 H (15-37) IU/L ALT 37 (14-63) IU/L Alkaline Phosphatase 64 (46-116) U/L Troponin I < 0.050 < 0.050 (0.000-0.056) ng/mL B-Natriuretic Peptide 44 (<100) PG/ML Total Protein 6.9 (6.4-8.2) g/dL Albumin 3.4 (3.4-5.0) g/dL Globulin 3.5 (2.6-4.0) g/dL Albumin/Globulin Ratio 1.0 (0.9-1.6) SARS-CoV-2 RNA (LUANN) (NEGATIVE) Group A Strep (PCR) (NOT DETECT) Meds: Medications Generic Name Dose Route Start Last Admin Trade Name Freq PRN Reason Stop Dose Admin Sodium Chloride 10 ml 04/06/21 02:17 04/06/21 02:44 Sodium Chloride 0.9% 10 Ml Syringe FLUSH 10 ml ASDIRECTED PRN Administration Keep Vein Open Sodium Chloride 2.5 ml 04/06/21 02:17 04/06/21 02:43 Sodium Chloride 0.9% 2.5 Ml Syringe FLUSH 2.5 ml ASDIRECTED PRN Administration Keep Vein Open Discontinued Medications Generic Name Dose Route Start Last Admin Trade Name Dean PRN Reason Stop Dose Admin Al Hydroxide/Mg Hydroxide 15 0 ml 04/06/21 06:24 ml/ Lidocaine HCl 5 ml PO 04/06/21 06:25 ONETIME ONE Lorazepam 1 mg 04/06/21 02:39 04/06/21 02:45 Lorazepam 2 Mg/Ml Sdv IVPUSH 04/06/21 02:40 1 mg ONETIME ONE Administration - Re-Assessments/Exams Free Text/Narrative Re-Assessment/Exam: 04/06/21 06:[address] Saavedra, who agrees to admit patient. The hospitalist's documentation supersedes all other documentation on this patient with regard to any conflicts or discrepancies from this point forward. Any emergency conditions have been treated to the ability of the ED prior to admission. Departure - Departure Time of Disposition: 06:29 Disposition: Refer to Observation Condition: Good Clinical Impression: Chest pain - Discharge Information *PRESCRIPTION DRUG MONITORING PROGRAM REVIEWED*: Not Applicable *COPY OF PRESCRIPTION DRUG MONITORING REPORT IN PATIENT DELMAR: Not Applicable Instructions: Nonspecific Chest Pain, Adult Sepsis Event Note (ED) - Focused Exam Vital Signs: Vital Signs Temp Pulse Resp BP Pulse Ox 04/06/21 06:00 97.1 F 79 17 145/91 H 96 04/06/21 04:52 96.9 F 76 19 145/96 H 94 L 04/06/21 04:34 96.8 F L 83 18 146/90 H 92 L 04/06/21 02:42 97.3 F 72 25 H 170/84 H 98 04/06/21 02:40 97.6 F 80 20 170/94 H 04/06/21 02:25 98.7 F 80 19 176/99 H 94 L - My Orders Last 24 Hours: My Active Orders 04/06/21 02:17 Cardiac Monitoring [RC] . DIRECTED Pulse Oximetry [RC] ASDIRECTED Sodium Chloride 0.9% [Saline Flush] 10 ml FLUSH ASDIRECTED PRN Sodium Chloride 0.9% [Saline Flush] 2.5 ml FLUSH ASDIRECTED PRN 04/06/21 02:18 EKG Documentation Completion [RC] STAT Saline Lock Insert [OM.PC] Stat 04/06/21 05:05 LIPID PANEL [CHEM] Stat 04/06/21 06:28 Patient Status [ADT] Routine - Assessment/Plan Last 24 Hours: My Active Orders 04/06/21 02:17 Cardiac Monitoring [RC] . DIRECTED Pulse Oximetry [RC] ASDIRECTED Sodium Chloride 0.9% [Saline Flush] 10 ml FLUSH ASDIRECTED PRN Sodium Chloride 0.9% [Saline Flush] 2.5 ml FLUSH ASDIRECTED PRN 04/06/21 02:18 EKG Documentation Completion [RC] STAT Saline Lock Insert [OM.PC] Stat 04/06/21 05:05 LIPID PANEL [CHEM] Stat 04/06/21 06:28 Patient Status [ADT] Routine
[2021-04-06] MEDS ORDERED: LORazepam 2 MG/ML SDV IVPUSH ONE (02:39)
[2021-04-06] MEDS: Sodium Chloride 0.9% 2.5 ML Syringe FLUSH PRN ×2 (02:43→20:56)
[2021-04-06 03:12] LABS: BLOOD UREA NITROGEN,BUN 10 mg/dL (7.0-18.0); CARBON DIOXIDE,CO2 24.2 mmol/L (21.0-32.0); CHLORIDE,CL 103 mmol/L (98-107); GLUCOSE RANDOM 117 mg/dL (74-106); POTASSIUM,K 3.4 mmol/L (3.5-5.1); SODIUM,NA 141 mmol/L (136-148)
--- NOTE | 2021-04-06 03:16 | CR ---
For Patients: As a result of the Century Cures Act, medical imaging exams and procedure reports are released immediately into your electronic medical record. You may view this report before your referring provider. If you have questions, please contact your health care provider. INDICATION: Shortness of breath. COMPARISON: 01/10/2018. TECHNIQUE: Single portable AP view of the chest. FINDINGS: The lungs are hypoinflated. EKG leads overlie the thorax. No definite acute airspace consolidation or pneumothorax. No significant effusion. Cardiomediastinal silhouette is unremarkable for an AP view. Surgical changes of the left shoulder. No acute osseous findings. IMPRESSION: Hypoventilatory changes. No acute airspace disease. Dictated by Darin Rose MD @ 04/06/2021 3:14:31 AM Dictated by: Darin Rose MD @ 04/06/2021 03:14:38 (Electronically Signed)
[2021-04-06] MEDS ORDERED: Alum Hydrox/Mag Hydrox/Simeth 15 ML, Lidocaine 2% 5 ML PO ONE ×2 (06:24)
[2021-04-06] MEDS ORDERED: Potassium Chloride 20 MEQ Tab.ER PO ONE (08:45)
[2021-04-06] MEDS ORDERED: Nitroglycerin 0.4 MG Tab.SL SL PRN (08:45)
[2021-04-06] MEDS ORDERED: Albuterol/Ipratropium 3.0-0.5 MG/3 ML Neb Soln NEB PRN (08:45)
[2021-04-06] MEDS ORDERED: Morphine 2 MG/ML SYRINGE IVPUSH PRN (08:49)
[2021-04-06] MEDS: Enoxaparin 40 MG/0.4 ML Syringe SUBCUT SCH (09:07)
[2021-04-06] MEDS: Aspirin 81 MG Tab.EC PO SCH (09:07)
[2021-04-06 09:12] LABS: HEMOGLOBIN A1C 5.5 %
--- NOTE | 2021-04-06 10:20 | PCM.HP.2 ---
H&P History of Present Illness - General Date of Service: 04/06/21 Admit Problem/Dx: Admission Diagnosis/Problem Admission Diagnosis/Problem Chest pain - History of Present Illness Initial Comments - Free Text/Narative: 70-year-old male with history of HTN. HLD, SAMEER on CPAP, gastritis, BMI >30, presents with chest pain, He has had intermittent left-sided nonradiating chest pain for over the past 3 days, he has had 4 episodes which last between minutes to hours, rating 5/10 at its worse. He is currently chest pain-free. Associated symptoms include short of breath and subjective fevers and chills and sweats, swelling/irritation to the back of his throat, nausea, diarrhea, generalized malaise. Also c/o intermittent palpitations. He denies vomiting. He has never had a stress test. Patient has h/o HTN but isnt on any meds. Patients troponin was negative, ekg unremarkable for ACS. Chest x-ray showed hypoventilatory changes, states he feels much better after getting breathing treatment and oxygen. Used to drink alcohol significantly but now doesnt drink as much, Throat Pain Score (Numeric/FACES): 5 - Related Data Allergies/Adverse Reactions: Allergies Allergy/AdvReac Type Severity Reaction Status Date / Time levofloxacin [From Levaquin] Allergy Rash Verified 04/06/21 07:54 Home Medications: Home Meds . [No Known Home Meds] 06/12/18 [History] Past Medical History HEENT History: Reports: Impaired Vision Other HEENT History: wears glasses Cardiovascular History: Reports: None Respiratory History: Reports: Sleep Apnea Other Respiratory History: none Gastrointestinal History: Reports: Cholelithiasis, GERD, Other (See Below) Other Gastrointestinal History: occasional reflux, epigastric pain due to cholelithiasis Genitourinary History: Reports: None Musculoskeletal History: Reports: Arthritis, Other (See Below) Endocrine/Metabolic History: Reports: Obesity/BMI 30+ - Infectious Disease History Infectious Disease History: Reports: Chicken Pox, Measles - Past Surgical History Head Surgeries/Procedures: Reports: None HEENT Surgical History: Reports: Naso-Sinus Surgery, Tonsillectomy Cardiovascular Surgical History: Reports: None GI Surgical History: Reports: Colonoscopy, EGD Musculoskeletal Surgical History: Reports: Shoulder Surgery, Other (See Below) Other Musculoskeletal Surgeries/Procedures:: knee sx Social & Family History - Family History Family Medical History: No Pertinent Family History - Tobacco Use Tobacco Use Status *Q: Never Tobacco User - Caffeine Use Caffeine Use: Reports: Coffee, Tea - Recreational Drug Use Recreational Drug Use: No H&P Review of Systems - Review of Systems: Review Of Systems: See Below General: Denies: Fever, Chills, Malaise, Weakness Pulmonary: Reports: Shortness of Breath, Wheezing. Denies: Pleuritic Chest Pain, Cough Gastrointestinal: Reports: Abdominal Pain, Other (epigastric discomfort ). Denies: Anorexia, Distension, Nausea, Vomiting Musculoskeletal: Denies: Neck Pain, Shoulder Pain, Arm Pain Skin: Denies: Cyanosis, Jaundice, Mottled Psychiatric: Denies: Confusion, Depression, Mood Lability Neurological: Denies: Confusion, Dizziness, Headache, Numbness Hematologic/Lymphatic: Denies: Anemia, Easy Bleeding, Easy Bruising, Swollen Glands Exam - Exam Exam: See Below - Vital Signs Vital Signs: Last Vital Signs Temp 36.1 C 04/06/21 07:52 Pulse 72 04/06/21 07:52 Resp 17 04/06/21 07:52 BP 161/98 H 04/06/21 07:52 Pulse Ox 94 L 04/06/21 07:52 Weight: 118.297 kg - Exam Quality Assessment: Supplemental Oxygen General: Alert, Oriented Neck: Supple Lungs: Clear to Auscultation, Normal Respiratory Effort Cardiovascular: Regular Rate, Regular Rhythm, Normal S1, Normal S2 GI/Abdominal Exam: Normal Bowel Sounds, Soft, Other (epigastric tenderness ) Extremities: Normal Inspection, Normal Range of Motion, Non-Tender, No Pedal Edema - Patient Data Lab Results Last 24 hrs: Laboratory Results - last 24 hr 04/06/21 04/06/21 04/06/21 Range/Units 02:29 02:31 02:36 WBC 7.25 (4.0-11.0) K/uL RBC 5.11 (4.50-5.90) M/uL Hgb 16.3 (13.0-17.0) g/dL Hct 46.8 (38.0-50.0) % MCV 91.6 (80.0-98.0) fL MCH 31.9 (27.0-32.0) pg MCHC 34.8 (31.0-37.0) g/dL RDW Std Deviation 42.7 (28.0-62.0) fl RDW Coeff of Silva 13 (11.0-15.0) % Plt Count 224 (150-400) K/uL MPV 10.10 (7.40-12.00) fL Neut % (Auto) 67.3 (48.0-80.0) % Lymph % (Auto) 21.7 (16.0-40.0) % Schleicher % (Auto) 10.5 (0.0-15.0) % Eos % (Auto) 0.1 (0.0-7.0) % Baso % (Auto) 0.4 (0.0-1.5) % Neut # (Auto) 4.9 (1.4-5.7) K/uL Lymph # (Auto) 1.6 (0.6-2.4) K/uL Schleicher # (Auto) 0.8 (0.0-0.8) K/uL Eos # (Auto) 0.0 (0.0-0.7) K/uL Baso # (Auto) 0.0 (0.0-0.1) K/uL Nucleated RBC % 0.0 /100WBC Nucleated RBCs # 0 K/uL Sodium (136-148) mmol/L Potassium (3.5-5.1) mmol/L Chloride (98-107) mmol/L Carbon Dioxide (21.0-32.0) mmol/L BUN (7.0-18.0) mg/dL Creatinine (0.8-1.3) mg/dL Est Cr Clr Drug Dosing Estimated GFR (MDRD) ml/min Glucose (74-106) mg/dL Hemoglobin A1c (4.5 - 6.2) % Calcium (8.5-10.1) mg/dL Total Bilirubin (0.2-1.0) mg/dL AST (15-37) IU/L ALT (14-63) IU/L Alkaline Phosphatase (46-116) U/L Troponin I (0.000-0.056) ng/mL B-Natriuretic Peptide (<100) PG/ML Total Protein (6.4-8.2) g/dL Albumin (3.4-5.0) g/dL Globulin (2.6-4.0) g/dL Albumin/Globulin Ratio (0.9-1.6) Triglycerides (0-200) mg/dL Cholesterol (50-200) mg/dL LDL Cholesterol, Calc (60-180) mg/dL VLDL Cholesterol (5-55) mg/dL HDL Cholesterol (40-60) mg/dL Cholesterol/HDL Ratio (3.3-6.0) TSH 3rd Generation (0.36-3.74) uIU/mL SARS-CoV-2 RNA (LUANN) NEGATIVE (NEGATIVE) Group A Strep (PCR) NOT DETECTED (NOT DETECT) 04/06/21 04/06/21 04/06/21 Range/Units 02:36 02:36 05:05 WBC (4.0-11.0) K/uL RBC (4.50-5.90) M/uL Hgb (13.0-17.0) g/dL Hct (38.0-50.0) % MCV (80.0-98.0) fL MCH (27.0-32.0) pg MCHC (31.0-37.0) g/dL RDW Std Deviation (28.0-62.0) fl RDW Coeff of Silva (11.0-15.0) % Plt Count (150-400) K/uL MPV (7.40-12.00) fL Neut % (Auto) (48.0-80.0) % Lymph % (Auto) (16.0-40.0) % Schleicher % (Auto) (0.0-15.0) % Eos % (Auto) (0.0-7.0) % Baso % (Auto) (0.0-1.5) % Neut # (Auto) (1.4-5.7) K/uL Lymph # (Auto) (0.6-2.4) K/uL Schleicher # (Auto) (0.0-0.8) K/uL Eos # (Auto) (0.0-0.7) K/uL Baso # (Auto) (0.0-0.1) K/uL Nucleated RBC % /100WBC Nucleated RBCs # K/uL Sodium 141 (136-148) mmol/L Potassium 3.4 L (3.5-5.1) mmol/L Chloride 103 (98-107) mmol/L Carbon Dioxide 24.2 (21.0-32.0) mmol/L BUN 10 (7.0-18.0) mg/dL Creatinine 0.9 (0.8-1.3) mg/dL Est Cr Clr Drug Dosing TNP Estimated GFR (MDRD) > 60.0 ml/min Glucose 117 H (74-106) mg/dL Hemoglobin A1c (4.5 - 6.2) % Calcium 8.5 (8.5-10.1) mg/dL Total Bilirubin 1.2 H (0.2-1.0) mg/dL AST 76 H (15-37) IU/L ALT 37 (14-63) IU/L Alkaline Phosphatase 64 (46-116) U/L Troponin I < 0.050 < 0.050 (0.000-0.056) ng/mL B-Natriuretic Peptide 44 (<100) PG/ML Total Protein 6.9 (6.4-8.2) g/dL Albumin 3.4 (3.4-5.0) g/dL Globulin 3.5 (2.6-4.0) g/dL Albumin/Globulin Ratio 1.0 (0.9-1.6) Triglycerides (0-200) mg/dL Cholesterol (50-200) mg/dL LDL Cholesterol, Calc (60-180) mg/dL VLDL Cholesterol (5-55) mg/dL HDL Cholesterol (40-60) mg/dL Cholesterol/HDL Ratio (3.3-6.0) TSH 3rd Generation (0.36-3.74) uIU/mL SARS-CoV-2 RNA (LUANN) (NEGATIVE) Group A Strep (PCR) (NOT DETECT) 04/06/21 04/06/21 04/06/21 Range/Units 05:05 08:51 08:51 WBC (4.0-11.0) K/uL RBC (4.50-5.90) M/uL Hgb (13.0-17.0) g/dL Hct (38.0-50.0) % MCV (80.0-98.0) fL MCH (27.0-32.0) pg MCHC (31.0-37.0) g/dL RDW Std Deviation (28.0-62.0) fl RDW Coeff of Silva (11.0-15.0) % Plt Count (150-400) K/uL MPV (7.40-12.00) fL Neut % (Auto) (48.0-80.0) % Lymph % (Auto) (16.0-40.0) % Schleicher % (Auto) (0.0-15.0) % Eos % (Auto) (0.0-7.0) % Baso % (Auto) (0.0-1.5) % Neut # (Auto) (1.4-5.7) K/uL Lymph # (Auto) (0.6-2.4) K/uL Schleicher # (Auto) (0.0-0.8) K/uL Eos # (Auto) (0.0-0.7) K/uL Baso # (Auto) (0.0-0.1) K/uL Nucleated RBC % /100WBC Nucleated RBCs # K/uL Sodium (136-148) mmol/L Potassium (3.5-5.1) mmol/L Chloride (98-107) mmol/L Carbon Dioxide (21.0-32.0) mmol/L BUN (7.0-18.0) mg/dL Creatinine (0.8-1.3) mg/dL Est Cr Clr Drug Dosing Estimated GFR (MDRD) ml/min Glucose (74-106) mg/dL Hemoglobin A1c (4.5 - 6.2) % Calcium (8.5-10.1) mg/dL Total Bilirubin (0.2-1.0) mg/dL AST (15-37) IU/L ALT (14-63) IU/L Alkaline Phosphatase (46-116) U/L Troponin I < 0.050 (0.000-0.056) ng/mL B-Natriuretic Peptide (<100) PG/ML Total Protein (6.4-8.2) g/dL Albumin (3.4-5.0) g/dL Globulin (2.6-4.0) g/dL Albumin/Globulin Ratio (0.9-1.6) Triglycerides 66 (0-200) mg/dL Cholesterol 218 H (50-200) mg/dL LDL Cholesterol, Calc 66 (60-180) mg/dL VLDL Cholesterol 13 (5-55) mg/dL HDL Cholesterol 139 H (40-60) mg/dL Cholesterol/HDL Ratio 1.6 L (3.3-6.0) TSH 3rd Generation 1.86 (0.36-3.74) uIU/mL SARS-CoV-2 RNA (LUANN) (NEGATIVE) Group A Strep (PCR) (NOT DETECT) 04/06/21 Range/Units 08:51 WBC (4.0-11.0) K/uL RBC (4.50-5.90) M/uL Hgb (13.0-17.0) g/dL Hct (38.0-50.0) % MCV (80.0-98.0) fL MCH (27.0-32.0) pg MCHC (31.0-37.0) g/dL RDW Std Deviation (28.0-62.0) fl RDW Coeff of Silva (11.0-15.0) % Plt Count (150-400) K/uL MPV (7.40-12.00) fL Neut % (Auto) (48.0-80.0) % Lymph % (Auto) (16.0-40.0) % Schleicher % (Auto) (0.0-15.0) % Eos % (Auto) (0.0-7.0) % Baso % (Auto) (0.0-1.5) % Neut # (Auto) (1.4-5.7) K/uL Lymph # (Auto) (0.6-2.4) K/uL Schleicher # (Auto) (0.0-0.8) K/uL Eos # (Auto) (0.0-0.7) K/uL Baso # (Auto) (0.0-0.1) K/uL Nucleated RBC % /100WBC Nucleated RBCs # K/uL Sodium (136-148) mmol/L Potassium (3.5-5.1) mmol/L Chloride (98-107) mmol/L Carbon Dioxide (21.0-32.0) mmol/L BUN (7.0-18.0) mg/dL Creatinine (0.8-1.3) mg/dL Est Cr Clr Drug Dosing Estimated GFR (MDRD) ml/min Glucose (74-106) mg/dL Hemoglobin A1c 5.5 (4.5 - 6.2) % Calcium (8.5-10.1) mg/dL Total Bilirubin (0.2-1.0) mg/dL AST (15-37) IU/L ALT (14-63) IU/L Alkaline Phosphatase (46-116) U/L Troponin I (0.000-0.056) ng/mL B-Natriuretic Peptide (<100) PG/ML Total Protein (6.4-8.2) g/dL Albumin (3.4-5.0) g/dL Globulin (2.6-4.0) g/dL Albumin/Globulin Ratio (0.9-1.6) Triglycerides (0-200) mg/dL Cholesterol (50-200) mg/dL LDL Cholesterol, Calc (60-180) mg/dL VLDL Cholesterol (5-55) mg/dL HDL Cholesterol (40-60) mg/dL Cholesterol/HDL Ratio (3.3-6.0) TSH 3rd Generation (0.36-3.74) uIU/mL SARS-CoV-2 RNA (LUANN) (NEGATIVE) Group A Strep (PCR) (NOT DETECT) Result Diagrams: 04/06/21 02:36 04/06/21 02:36 Sepsis Event Note - Evaluation Sepsis Screening Result: No Definite Risk - Focused Exam Vital Signs: Vital Signs Temp Pulse Resp BP Pulse Ox 04/06/21 07:52 36.1 C 72 17 161/98 H 94 L 04/06/21 06:00 36.2 C 79 17 145/91 H 96 04/06/21 04:52 36.1 C 76 19 145/96 H 94 L 04/06/21 04:34 36.0 C L 83 18 146/90 H 92 L 04/06/21 02:42 36.3 C 72 25 H 170/84 H 98 04/06/21 02:40 36.4 C 80 20 170/94 H 04/06/21 02:25 37.1 C 80 19 176/99 H 94 L - Problem List (1) Chest pain SNOMED Code(s): 25654848 ICD Code: R07.9 - CHEST PAIN, UNSPECIFIED Status: Acute Current Visit: Yes (2) Gastritis SNOMED Code(s): 3038143 ICD Code: K29.70 - GASTRITIS, UNSPECIFIED, WITHOUT BLEEDING Status: Acute Current Visit: Yes (3) SAMEER on CPAP SNOMED Code(s): 04292300 ICD Code: G47.33 - OBSTRUCTIVE SLEEP APNEA (ADULT) (PEDIATRIC); Z99.89 - DEPENDENCE ON OTHER ENABLING MACHINES AND DEVICES Status: Acute Current Visit: Yes (4) HTN (hypertension) SNOMED Code(s): 16077177 ICD Code: I10 - ESSENTIAL (PRIMARY) HYPERTENSION Status: Acute Current Visit: Yes (5) HLD (hyperlipidemia) SNOMED Code(s): 80313961 ICD Code: E78.5 - HYPERLIPIDEMIA, UNSPECIFIED Status: Acute Current Visit: Yes (6) BMI 33.0-33.9,adult SNOMED Code(s): 428188188 ICD Code: Z68.33 - BODY MASS INDEX [BMI] 33.0-33.9, ADULT Status: Acute Current Visit: Yes Problem List Initiated/Reviewed/Updated: Yes Orders Last 24hrs: Active Orders 24 hr Category Date Time Status Patient Status [ADT] Routine ADT 04/06/21 06:28 Active Ambulate [RC] PER UNIT ROUTINE Care 04/06/21 08:42 Active Antiembolic Devices [RC] PER UNIT ROUTINE Care 04/06/21 08:43 Active Cardiac Monitoring [RC] Q8H Care 04/06/21 02:17 Active EKG Documentation Completion [RC] STAT Care 04/06/21 02:18 Active Oxygen Therapy [RC] ASDIRECTED Care 04/06/21 08:42 Active Pulse Oximetry [RC] ASDIRECTED Care 04/06/21 02:17 Active Pulse Oximetry [RC] ASDIRECTED Care 04/06/21 08:42 Active RT Aerosol Therapy [RC] ASDIRECTED Care 04/06/21 08:46 Active Telemetry Monitoring [Cardiac Monitoring] [RC] . Care 04/06/21 07:46 Active DIRECTED Vital Signs [RC] Q4H Care 04/06/21 08:42 Active Heart Healthy Diet [DIET] Diet 04/06/21 Breakfast Active Sodium Restricted Diet [DIET] Diet 04/06/21 Breakfast Active Albuterol/Ipratropium [DuoNeb 3.0-0.5 MG/3 ML] Med 04/06/21 08:45 Active 3 ml NEB Q4HRRT PRN Aspirin [Halfprin] Med 04/06/21 09:00 Active 81 mg PO DAILY Enoxaparin [Lovenox] Med 04/06/21 08:45 Active 40 mg SUBCUT Q24H Morphine Med 04/06/21 08:49 Active 1 mg IVPUSH Q4H PRN Nitroglycerin [Nitrostat] Med 04/06/21 08:45 Active 0.4 mg SL Q5M PRN Sodium Chloride 0.9% [Saline Flush] Med 04/06/21 02:17 Active 10 ml FLUSH ASDIRECTED PRN Sodium Chloride 0.9% [Saline Flush] Med 04/06/21 02:17 Active 2.5 ml FLUSH ASDIRECTED PRN atorvaSTATin [Lipitor] Med 04/06/21 21:00 Active 40 mg PO BEDTIME Saline Lock Insert [OM.PC] Stat Oth 04/06/21 02:18 Ordered Sequential Compression Device [OM.PC] Routine Oth 04/06/21 08:42 Ordered Medication Orders Albuterol/Ipratropium (Albuterol/Ipratropium 3.0-0.5 Mg/3 Ml Neb Soln) 3 ml NEB Q4HRRT PRN PRN Reason: Shortness of Breath Aspirin (Aspirin 81 Mg Tab.Ec) 81 mg PO DAILY [facility] Last Admin: 04/06/21 09:07 Dose: 81 mg Documented by: ERICA Atorvastatin Calcium (Atorvastatin 40 Mg Tab) 40 mg PO BEDTIME [facility] Enoxaparin Sodium (Enoxaparin 40 Mg/0.4 Ml Syringe) 40 mg SUBCUT Q24H [facility] Last Admin: 04/06/21 09:07 Dose: 40 mg Documented by: ERICA Morphine Sulfate (Morphine 2 Mg/Ml Syringe) 1 mg IVPUSH Q4H PRN PRN Reason: Chest Pain Nitroglycerin (Nitroglycerin 0.4 Mg Tab.Sl) 0.4 mg SL Q5M PRN PRN Reason: Chest Pain Sodium Chloride (Sodium Chloride 0.9% 10 Ml Syringe) 10 ml FLUSH ASDIRECTED PRN PRN Reason: Keep Vein Open Last Admin: 04/06/21 02:44 Dose: 10 ml Documented by: RAFAEL Sodium Chloride (Sodium Chloride 0.9% 2.5 Ml Syringe) 2.5 ml FLUSH ASDIRECTED PRN PRN Reason: Keep Vein Open Last Admin: 04/06/21 02:43 Dose: 2.5 ml Documented by: RAFAEL Assessment/Plan Comment:: Patient is a 70-year-old male admitted for chest pain, ACS rule out Troponins x3 have been negative Telemetry is unremarkable Basic labs were checked, patient has hyperlipidemia as well as untreated hypertension We will start patient on baby aspirin and statin as well as low-dose amlodipine Continue to monitor on telemetry as patient complains of intermittent palpitations in the past Patient does have symptoms concerning for gastritis, also has previous history of alcoholic gastritis, H. pylori level checked in the past in 2018 which was negative Will check stool for H. 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
[2021-04-06] MEDS: amLODIPine 5 MG Tab PO SCH (10:49)
[2021-04-06] MEDS ORDERED: Aluminum Hydroxide/Magnesium Hydroxide/Simethicone Susp 30 ML Cup PO ONE (13:58)
[2021-04-06] MEDS ORDERED: Pantoprazole 40 MG in Sodium Chloride 0.9% 10 ML IV ONE (13:58)
[2021-04-06] MEDS ORDERED: Aluminum Hydroxide/Magnesium Hydroxide/Simethicone Susp 30 ML Cup PO PRN (14:15)
[2021-04-06] MEDS ORDERED: atorvaSTATin 40 MG Tab PO SCH (21:00)
[2021-04-07] MEDS: amLODIPine 5 MG Tab PO SCH (08:35)
[2021-04-07] MEDS: Aspirin 81 MG Tab.EC PO SCH (08:35)
[2021-04-07] MEDS: Enoxaparin 40 MG/0.4 ML Syringe SUBCUT SCH (08:36)
[2021-04-07] MEDS ORDERED: Pantoprazole 40 MG in Sodium Chloride 0.9% 10 ML IV SCH (09:00)
[2021-04-07 12:18] VITALS: BP 142/101; PULSE 89
--- NOTE | 2021-04-07 14:43 | PCM.DCSUM1 ---
Discharge Summary - Hospital Course Diagnosis: Stroke: No - Discharge Data Discharge Disposition: Home, Self-Care 01 Condition: Stable - Referral to Home Health Primary Care Physician: PCP None - Discharge Diagnosis/Problem(s) (1) Chest pain SNOMED Code(s): 97583514 ICD Code: R07.9 - CHEST PAIN, UNSPECIFIED Status: Acute Current Visit: Yes (2) Gastritis SNOMED Code(s): 3000418 ICD Code: K29.70 - GASTRITIS, UNSPECIFIED, WITHOUT BLEEDING Status: Acute Current Visit: Yes (3) SAMEER on CPAP SNOMED Code(s): 28936735 ICD Code: G47.33 - OBSTRUCTIVE SLEEP APNEA (ADULT) (PEDIATRIC); Z99.89 - DEPENDENCE ON OTHER ENABLING MACHINES AND DEVICES Status: Acute Current Visit: Yes (4) HTN (hypertension) SNOMED Code(s): 05836712 ICD Code: I10 - ESSENTIAL (PRIMARY) HYPERTENSION Status: Acute Current Visit: Yes (5) HLD (hyperlipidemia) SNOMED Code(s): 71137578 ICD Code: E78.5 - HYPERLIPIDEMIA, UNSPECIFIED Status: Acute Current Visit: Yes (6) BMI 33.0-33.9,adult SNOMED Code(s): 993758201 ICD Code: Z68.33 - BODY MASS INDEX [BMI] 33.0-33.9, ADULT Status: Acute Current Visit: Yes - Patient Instructions Diet: Heart Healthy Diet Activity: As Tolerated Driving: May Drive Today Showering/Bathing: May Shower Notify Provider of: Fever, Increased Pain, Swelling and Redness, Drainage, Nausea and/or Vomiting - Discharge Plan *PRESCRIPTION DRUG MONITORING PROGRAM REVIEWED*: Not Applicable *COPY OF PRESCRIPTION DRUG MONITORING REPORT IN PATIENT DELMAR: Not Applicable Prescriptions/Med Rec: Aspirin [Halfprin] 81 mg PO DAILY #30 tab.ec atorvaSTATin [Lipitor] 40 mg PO BEDTIME #30 tablet Alum Hydrox/Mag Hydrox/Simeth [Mag-Al Plus] 30 ml PO Q8H PRN #1 bottle PRN Reason: Heartburn amLODIPine [Norvasc] 10 mg PO DAILY #30 tablet Omeprazole 20 mg PO ACBREAKFAST #30 tablet. Home Medications: Home Meds Alum Hydrox/Mag Hydrox/Simeth [Mag-Al Plus] 30 ml PO Q8H PRN #1 bottle 04/07/21 [Rx] Aspirin [Halfprin] 81 mg PO DAILY #30 tab.ec 04/07/21 [Rx] Omeprazole 20 mg PO ACBREAKFAST #30 tablet. 04/07/21 [Rx] amLODIPine [Norvasc] 10 mg PO DAILY #30 tablet 04/07/21 [Rx] atorvaSTATin [Lipitor] 40 mg PO BEDTIME #30 tablet 04/07/21 [Rx] Patient Handouts: Gastritis, Adult, [id number], Nonspecific Chest Pain, Adult, Sleep Apnea, [id number] Referrals: Pawel Snyder MD [Ordering Only Provider] - 04/16/21 10:30 am - Patient Data Vitals - Most Recent: Last Vital Signs Temp 36.3 C 04/07/21 12:00 Pulse 89 04/07/21 12:00 Resp 22 H 04/07/21 12:00 BP 142/101 H 04/07/21 12:00 Pulse Ox 94 L 04/07/21 12:00 Weight - Most Recent: 118.297 kg I&O - Last 24 hours: Intake & Output 04/06/21 04/07/21 04/07/21 22:59 06:59 14:59 Intake Total 610 600 10 Output Total 200 Balance 410 600 10 Med Orders - Current: Current Medications Al Hydroxide/Mg Hydroxide (Aluminum Hydroxide/Magnesium Hydroxide/Simethicone Susp 30 Ml Cup) 30 ml PO Q4H PRN PRN Reason: Heartburn Last Admin: 04/06/21 20:54 Dose: 30 ml Documented by: Albuterol/Ipratropium (Albuterol/Ipratropium 3.0-0.5 Mg/3 Ml Neb Soln) 3 ml NEB Q4HRRT PRN PRN Reason: Shortness of Breath Last Admin: 04/06/21 10:59 Dose: 3 ml Documented by: Amlodipine Besylate (Amlodipine 5 Mg Tab) 10 mg PO DAILY [facility] Last Admin: 04/07/21 08:35 Dose: 10 mg Documented by: Aspirin (Aspirin 81 Mg Tab.Ec) 81 mg PO DAILY [facility] Last Admin: 04/07/21 08:35 Dose: 81 mg Documented by: Atorvastatin Calcium (Atorvastatin 40 Mg Tab) 40 mg PO BEDTIME [facility] Last Admin: 04/06/21 20:54 Dose: 40 mg Documented by: Enoxaparin Sodium (Enoxaparin 40 Mg/0.4 Ml Syringe) 40 mg SUBCUT Q24H [facility] Last Admin: 04/07/21 08:36 Dose: 40 mg Documented by: Pantoprazole Sodium 40 mg/ (Sodium Chloride) 10 mls @ 300 mls/hr IV Q24H [facility] Last Admin: 04/07/21 08:37 Dose: 300 mls/hr Documented by: Morphine Sulfate (Morphine 2 Mg/Ml Syringe) 1 mg IVPUSH Q4H PRN PRN Reason: Chest Pain Nitroglycerin (Nitroglycerin 0.4 Mg Tab.Sl) 0.4 mg SL Q5M PRN PRN Reason: Chest Pain Sodium Chloride (Sodium Chloride 0.9% 10 Ml Syringe) 10 ml FLUSH ASDIRECTED PRN PRN Reason: Keep Vein Open Last Admin: 04/06/21 02:44 Dose: 10 ml Documented by: Sodium Chloride (Sodium Chloride 0.9% 2.5 Ml Syringe) 2.5 ml FLUSH ASDIRECTED PRN PRN Reason: Keep Vein Open Last Admin: 04/06/21 20:56 Dose: 2.5 ml Documented by: Discontinued Medications Al Hydroxide/Mg Hydroxide (Aluminum Hydroxide/Magnesium Hydroxide/Simethicone Susp 30 Ml Cup) 30 ml PO ONETIME ONE Stop: 04/06/21 13:59 Last Admin: 04/06/21 14:23 Dose: 30 ml Documented by: Al Hydroxide/Mg Hydroxide 15 (ml/ Lidocaine HCl 5 ml) 0 ml PO ONETIME ONE Stop: 04/06/21 06:25 Last Admin: 04/06/21 06:52 Dose: 1 each Documented by: Pantoprazole Sodium 40 mg/ (Sodium Chloride) 10 mls @ 300 mls/hr IV NOW ONE Stop: 04/06/21 13:59 Last Admin: 04/06/21 14:23 Dose: 300 mls/hr Documented by: Lorazepam (Lorazepam 2 Mg/Ml Sdv) 1 mg IVPUSH ONETIME ONE Stop: 04/06/21 02:40 Last Admin: 04/06/21 02:45 Dose: 1 mg Documented by: Potassium Chloride (Potassium Chloride 20 Meq Tab.Er) 40 meq PO ONETIME ONE Stop: 04/06/21 08:46 Last Admin: 04/06/21 09:07 Dose: 40 meq Documented by:
== END 2021-04-07 15:36 | disposition home or self-care (01) ==
LOC: MW.ED 02:17 → MW.MS 06:28
PROVIDERS: ADMIT Student in an Organized Health Care Education/Training Program; ATTEND Student in an Organized Health Care Education/Training Program
DX: R07.9 Chest pain, unspecified (principal); I10 Essential (primary) hypertension; E78.5 Hyperlipidemia, unspecified; G47.33 Obstructive sleep apnea (adult) (pediatric); E66.9 Obesity, unspecified; K21.9 Gastro-esophageal reflux disease without esophagitis; K29.70 Gastritis, unspecified, without bleeding; Z68.33 Body mass index [BMI] 33.0-33.9, adult; Z79.899 Other long term (current) drug therapy; Z20.822 Contact with and (suspected) exposure to COVID-19; Z88.8 Allergy status to other drugs, medicaments and biological substances; Z98.890 Other specified postprocedural states; Z79.82 Long term (current) use of aspirin
CPT/HCPCS: 36415; 71045; 80053; 80061; 83036; 83880; 84443; 84484; 85025; 87338; 87651; 93005; 94640; 96374; 99285; A9270; C9113; J1650; J2060; U0002; 96372; 96375; 96376; G0378; J7620-GY

== ENCOUNTER 2021-08-13 15:32 | Inpatient (IN) | payer MEDICARE, OTHER ==
--- NOTE | 2021-08-13 15:53 | PCM.EKG ---
#1 Interpretation EKG Date: 08/13/21 Time: 15:41 Rhythm: Other (sinus tach) Rate (Beats/Min): 116 ST-T: Normal
--- NOTE | 2021-08-13 16:10 | CR ---
INDICATION: Chest Pain TECHNIQUE: Chest 1 view. COMPARISON: 03/27/21 FINDINGS: Cardiovascular and mediastinum: Heart size and vasculature are normal in caliber and appearance. Mediastinum is within normal limits. Lungs and pleural space: Lungs are clear. No sign of infiltrate or mass. No sign of pleural effusion. No pneumothorax. Bones and soft tissues: No significant findings. IMPRESSION: Unremarkable chest. Dictated by: Blake Morocho MD @ 08/13/2021 16:08:27 (Electronically Signed)
[2021-08-13] MEDS ORDERED: LORazepam 2 MG/ML SDV IVPUSH ONE ×2 (16:33→17:37)
[2021-08-13 16:42] LABS: BLOOD UREA NITROGEN,BUN 12 mg/dL (7.0-18.0); CARBON DIOXIDE,CO2 18.3 mmol/L (21.0-32.0); CHLORIDE,CL 98 mmol/L (98-107); GLUCOSE RANDOM 127 mg/dL (74-106); LIPASE 116 U/L (73-393); POTASSIUM,K 3.4 mmol/L (3.5-5.1); SODIUM,NA 137 mmol/L (136-148)
[2021-08-13] MEDS ORDERED: Magnesium Sulfate/Water 4 GM in Premix Bag 1 BAG IV ONE (17:11)
[2021-08-13] MEDS ORDERED: Lidocaine 2% Viscous Solution 15 ML Cup PO ONE (17:12)
[2021-08-13] MEDS ORDERED: Sodium Chloride 0.9% 1,000 ML IV ONE (17:40)
--- NOTE | 2021-08-13 17:44 | EDM.PDOC ---
ED HPI GENERAL MEDICAL PROBLEM - General Chief Complaint: Chest Pain Stated Complaint: CHEST PAINS Time Seen by Provider: 08/13/21 15:54 Source of Information: Reports: Patient History Limitations: Reports: No Limitations - History of Present Illness INITIAL COMMENTS - FREE TEXT/NARRATIVE: HISTORY AND PHYSICAL: History of present illness: Patient is a 71-year-old female with a history of chronic alcohol use, hypertension, hyperlipidemia who presents emergency room today with concern of alcohol withdrawal, pharyngitis, chest pain. Patient states that he has been having a sore throat over the past 2 to 3 days and states that he has been unable to drink alcohol as the alcohol hurts his throat more and began developing chest pain yesterday and worsening today. Patient states that he typically drinks vodka all day long every day but states his last drink was 2 days ago. Patient states he started getting shaky, anxious, and chest pain yesterday and states that has been constant and getting worse since he has been unable to drink. Patient does desire to stop drinking and get help to quit. Patient states that he has had periods in the past where he has tried to stop drinking and states that he has had a seizures and does get the shakes and goes through alcohol withdrawal. Patient denies any vomiting. Patient states he has not taken anything for his symptoms and denies any other symptoms or concerns. Patient denies fever, chills, shortness of breath, or cough. Denies headache, neck stiff ness, change in vision, syncope, or near syncope. Denies nausea, vomi ting, abdominal pain, diarrhea, constipation, or dysuria. Has not noted any blood in urine or stool. Patient has been eating and drinking appropriately. Review of systems: As per history of present illness and below otherwise all systems reviewed and negative. Past medical history: As per history of present illness and as reviewed below otherwise noncontributory. Surgical history: As per history of present illness and as reviewed below otherwise noncontributory. Social history: See social history for further information Family history: As per history of present illness and as reviewed below otherwise noncontributory. Physical exam: General: Patient is alert, oriented, and in no acute distress. Patient sitting comfortably on exam table. Patient's hands are shaking at bedside. Patient is anxious appearing. HEENT: Atraumatic, normocephalic, pupils equal and reactive bilaterally, negative for conjunctival pallor or scleral icterus, mucous membranes dry, throat is mildly erythematous without exudate, tonsils are not enlarged, uvula midline,, neck supple, nontender, trachea midline. No drooling or trismus noted. No meningeal signs. No hot potato voice noted. Lungs: Clear to auscultation, breath sounds equal bilaterally, chest nontender. Heart: S1S2, regular rate and rhythm without overt murmur Abdomen: Soft, nondistended, nontender. Negative for masses or hepatosplenome margret. Negative for costovertebral tenderness. Pelvis: Stable nontender. Genitourinary: Deferred. Rectal: Deferred. Skin: Intact, warm, dry. No lesions or rashes noted. Extremities: Atraumatic, negative for cords or calf pain. Neurovascular unremarkable. Neuro: Awake, alert, oriented. Cranial nerves II through XII unremarkable. Cerebellum unremarkable. Motor and sensory unremarkable throughout. Exam nonfocal. Medical Decision Making: Patient is a 71-year-old male with a history of chronic alcohol use, hypertension, hyperlipidemia who presents emergency room today with concern of alcohol withdrawal and pharyngitis with associated chest pain. Patient states he stopped drinking 2 days ago as his alcohol bello his throat worse so is not going through withdrawal symptoms. Upon arrival to the ED, patient is anxious appearing and visibly shaking at bedside CIWA score at bedside is 11. Will initiate Ativan for alcohol withdrawal. Also obtain cardiac evaluation, provide fluid bolus, and reassess patient. See Dr. Leija's dictation for specific EKG interpretation. Otherwise, sinus tachycardia with rate of 116. No STEMI or acute changes. CBC mild derangements are unremarkable. CMP does show mild hypokalemia at 3.4. Carbon dioxide decreased at 18.3. Glucose of 127. Magnesium also mildly decreased at 1.6. Total bilirubin elevated at 1.6 with AST also elevated at 58. Troponin negative. Lipase normal. Other mild derangements of CMP unremarkable. chest X-ray is unremarkable. Following 1 mg of Ativan, patient CIWA score continues to be about 10-11. Will initiate other 2 mg of Ativan and reassess patient. After 20-minute paddy post the second milligram of Ativan, patient does still have some mild tremors but his anxiety has much improved. Repeat CIWA score 6/7. Patient states that his chest pain has nearly improved at this time and states that all other symptoms have also improved. Will continue to monitor patient while awaiting repeat trop. Repeat troponin negative. I did call and speak to the hospitalist on-call, Dr. Tai, and thoroughly discussed patient's case. Will admit to inpatient to Dr. Tai. Voices understanding and is agreeable to plan of care. Denies any further questions or concerns at this time. Diagnostics: EKG, CBC, CMP, chest x-ray, troponin, COVID-19, strep, magnesium, Viscous lidocaine Therapeutics: Normal saline, Ativan, magnesium, ASA, Potassium Impression: Alcohol withdrawal Chest pain Pharyngitis Hypomagnesemia Hypokalemia Plan: Admit to inpatient to Dr. Tai on telemetry. Definitive disposition and diagnosis as appropriate pending reevaluation and review of above. Middle Chest Pain Score (Numeric/FACES): 8 - Related Data Allergies Allergy/AdvReac Type Severity Reaction Status Date / Time levofloxacin [From Levaquin] Allergy Rash Verified 08/13/21 15:39 Home Meds: Home Meds Aspirin [Halfprin] 81 mg PO DAILY #30 tab.ec 04/07/21 [Rx] Omeprazole 20 mg PO ACBREAKFAST #30 tablet. 04/07/21 [Rx] amLODIPine [Norvasc] 10 mg PO DAILY #30 tablet 04/07/21 [Rx] atorvaSTATin [Lipitor] 40 mg PO BEDTIME #30 tablet 04/07/21 [Rx] Past Medical History HEENT History: Reports: Impaired Vision Other HEENT History: wears glasses Cardiovascular History: Reports: High Cholesterol, Hypertension Respiratory History: Reports: Sleep Apnea Other Respiratory History: none Gastrointestinal History: Reports: Cholelithiasis, GERD, Other (See Below) Other Gastrointestinal History: occasional reflux, epigastric pain due to cholelithiasis Genitourinary History: Reports: None Musculoskeletal History: Reports: Arthritis, Other (See Below) Neurological History: Reports: None Psychiatric History: Reports: None Endocrine/Metabolic History: Reports: Obesity/BMI 30+ Hematologic History: Reports: None Immunologic History: Reports: None Oncologic (Cancer) History: Reports: None Dermatologic History: Reports: None - Infectious Disease History Infectious Disease History: Reports: Chicken Pox, Measles - Past Surgical History Head Surgeries/Procedures: Reports: None HEENT Surgical History: Reports: Naso-Sinus Surgery, Tonsillectomy Cardiovascular Surgical History: Reports: None GI Surgical History: Reports: Colonoscopy, EGD Musculoskeletal Surgical History: Reports: Shoulder Surgery, Other (See Below) Other Musculoskeletal Surgeries/Procedures:: knee sx Social & Family History - Family History Family Medical History: No Pertinent Family History - Tobacco Use Tobacco Use Status *Q: Never Tobacco User Second Hand Smoke Exposure: No - Caffeine Use Caffeine Use: Reports: Coffee - Recreational Drug Use Recreational Drug Use: No ED ROS GENERAL - Review of Systems Review Of Systems: Comprehensive ROS is negative, except as noted in HPI. ED EXAM, GENERAL - Physical Exam Exam: See Below (see dictation) Course - Vital Signs Last Recorded V/S: Last Vital Signs Temp 99.5 F 08/13/21 15:41 Pulse 91 08/13/21 21:14 Resp 18 08/13/21 21:14 BP 152/89 H 08/13/21 21:14 Pulse Ox 94 L 08/13/21 21:14 - Orders/Labs/Meds Orders: Active Orders 24 hr Category Date Time Status Admission Status [Patient Status] [ADT] Stat ADT 08/13/21 20:41 Active Antiembolic Devices [RC] PER UNIT ROUTINE Care 08/13/21 20:58 Active Cardiac Monitoring [RC] . DIRECTED Care 08/13/21 20:59 Active Oxygen Therapy [RC] PRN Care 08/13/21 20:57 Active Up ad Edna [RC] ASDIRECTED Care 08/13/21 20:57 Active VTE/DVT Education [RC] PER UNIT ROUTINE Care 08/13/21 20:57 Active Vital Signs [RC] Q4H Care 08/13/21 20:57 Active Regular Diet [DIET] Diet 08/13/21 Breakfast Active CBC WITH AUTO DIFF [HEME] AM Lab 08/14/21 05:11 Ordered CBC WITH AUTO DIFF [HEME] AM Lab 08/15/21 05:11 Ordered CBC WITH AUTO DIFF [HEME] AM Lab 08/16/21 05:11 Ordered CBC WITH AUTO DIFF [HEME] AM Lab 08/17/21 05:11 Ordered CBC WITH AUTO DIFF [HEME] AM Lab 08/18/21 05:11 Ordered COMPREHENSIVE METABOLIC PN,CMP [CHEM] AM Lab 08/14/21 05:11 Ordered COMPREHENSIVE METABOLIC PN,CMP [CHEM] AM Lab 08/15/21 05:11 Ordered COMPREHENSIVE METABOLIC PN,CMP [CHEM] AM Lab 08/16/21 05:11 Ordered COMPREHENSIVE METABOLIC PN,CMP [CHEM] AM Lab 08/17/21 05:11 Ordered COMPREHENSIVE METABOLIC PN,CMP [CHEM] AM Lab 08/18/21 05:11 Ordered MAGNESIUM [CHEM] AM Lab 08/14/21 05:11 Ordered MAGNESIUM [CHEM] AM Lab 08/15/21 05:11 Ordered MAGNESIUM [CHEM] AM Lab 08/16/21 05:11 Ordered MAGNESIUM [CHEM] AM Lab 08/17/21 05:11 Ordered MAGNESIUM [CHEM] AM Lab 08/18/21 05:11 Ordered PHOSPHORUS [CHEM] AM Lab 08/14/21 05:11 Ordered PHOSPHORUS [CHEM] AM Lab 08/15/21 05:11 Ordered PHOSPHORUS [CHEM] AM Lab 08/16/21 05:11 Ordered PHOSPHORUS [CHEM] AM Lab 08/17/21 05:11 Ordered PHOSPHORUS [CHEM] AM Lab 08/18/21 05:11 Ordered TROPONIN I [CHEM] Stat Lab 08/14/21 03:00 Ordered Acetaminophen [TylenoL] Med 08/13/21 20:57 Active 650 mg PO Q4H PRN Aspirin [Halfprin] Med 08/14/21 09:00 Active 81 mg PO DAILY Folic Acid Med 08/13/21 21:00 Active 1 mg SUBCUT DAILY LORazepam [Ativan] Med 08/13/21 20:55 Active See Protocol IVPUSH Q4H PRN Omeprazole [Omeprazole] Med 08/14/21 07:30 Active 20 mg PO ACBREAKFAST Ondansetron [Zofran] Med 08/13/21 20:57 Active 4 mg IVPUSH Q4H PRN Thiamine [Vitamin B-1] 100 mg Med 08/13/21 21:00 Active Sodium Chloride 0.9% [Normal Saline] 100 ml IV DAILY amLODIPine [Norvasc] Med 08/14/21 09:00 Active 10 mg PO DAILY atorvaSTATin [Lipitor] Med 08/13/21 21:00 Active 40 mg PO BEDTIME Sequential Compression Device [OM.PC] Per Unit Routine Oth 08/13/21 20:57 Ordered Resuscitation Status Routine Resus Stat 08/13/21 20:57 Ordered Medication Orders Acetaminophen (Acetaminophen 325 Mg Tab) 650 mg PO Q4H PRN PRN Reason: Pain (Mild 1-3)/fever Amlodipine Besylate (Amlodipine 5 Mg Tab) 10 mg PO DAILY [facility] Aspirin (Aspirin 81 Mg Tab.Ec) 81 mg PO DAILY [facility] Atorvastatin Calcium (Atorvastatin 40 Mg Tab) 40 mg PO BEDTIME [facility] Folic Acid (Folic Acid 50 Mg/10 Ml Mdv) 1 mg SUBCUT DAILY [facility] Thiamine HCl 100 mg/ Sodium (Chloride) 101 mls @ 202 mls/hr IV DAILY [facility] Lorazepam (Lorazepam 2 Mg/Ml Sdv) 0 mg IVPUSH Q4H PRN; Protocol PRN Reason: CIWAA Non-Formulary Medication (Omeprazole [Omeprazole]) 20 mg PO ACBREAKFAST [facility] Ondansetron HCl (Ondansetron 4 Mg/2 Ml Sdv) 4 mg IVPUSH Q4H PRN PRN Reason: Nausea Labs: Laboratory Tests 08/13/21 08/13/21 08/13/21 Range/Units 16:04 16:04 17:34 WBC 9.69 (4.0-11.0) K/uL RBC 5.43 (4.50-5.90) M/uL Hgb 16.6 (13.0-17.0) g/dL Hct 48.6 (38.0-50.0) % MCV 89.5 (80.0-98.0) fL MCH 30.6 (27.0-32.0) pg MCHC 34.2 (31.0-37.0) g/dL RDW Std Deviation 44.3 (28.0-62.0) fl RDW Coeff of Silva 14 (11.0-15.0) % Plt Count 270 (150-400) K/uL MPV 10.10 (7.40-12.00) fL Neut % (Auto) 80.8 H (48.0-80.0) % Lymph % (Auto) 12.5 L (16.0-40.0) % Mcdonough % (Auto) 6.4 (0.0-15.0) % Eos % (Auto) 0.0 (0.0-7.0) % Baso % (Auto) 0.3 (0.0-1.5) % Neut # (Auto) 7.8 H (1.4-5.7) K/uL Lymph # (Auto) 1.2 (0.6-2.4) K/uL Mcdonough # (Auto) 0.6 (0.0-0.8) K/uL Eos # (Auto) 0.0 (0.0-0.7) K/uL Baso # (Auto) 0.0 (0.0-0.1) K/uL Nucleated RBC % 0.0 /100WBC Nucleated RBCs # 0 K/uL Sodium 137 (136-148) mmol/L Potassium 3.4 L (3.5-5.1) mmol/L Chloride 98 (98-107) mmol/L Carbon Dioxide 18.3 L (21.0-32.0) mmol/L BUN 12 (7.0-18.0) mg/dL Creatinine 1.0 (0.8-1.3) mg/dL Est Cr Clr Drug Dosing 79.92 mL/min Estimated GFR (MDRD) > 60.0 ml/min Glucose 127 H (74-106) mg/dL Calcium 9.0 (8.5-10.1) mg/dL Phosphorus 2.8 (2.6-4.7) mg/dL Magnesium 1.6 L (1.8-2.4) mg/dL Total Bilirubin 1.6 H (0.2-1.0) mg/dL AST 58 H (15-37) IU/L ALT 39 (14-63) IU/L Alkaline Phosphatase 77 (46-116) U/L Creatine Kinase 180 (26-308) U/L Troponin I < 0.050 (0.000-0.056) ng/mL Total Protein 8.5 H (6.4-8.2) g/dL Albumin 4.0 (3.4-5.0) g/dL Globulin 4.5 H (2.6-4.0) g/dL Albumin/Globulin Ratio 0.9 (0.9-1.6) Lipase 116 (73-393) U/L Influenza Type A RNA NEGATIVE (NEGATIVE) Influenza Type B RNA NEGATIVE (NEGATIVE) SARS-CoV-2 RNA (LUANN) NEGATIVE (NEGATIVE) Group A Strep (PCR) (NOT DETECT) 08/13/21 08/13/21 Range/Units 17:34 19:04 WBC (4.0-11.0) K/uL RBC (4.50-5.90) M/uL Hgb (13.0-17.0) g/dL Hct (38.0-50.0) % MCV (80.0-98.0) fL MCH (27.0-32.0) pg MCHC (31.0-37.0) g/dL RDW Std Deviation (28.0-62.0) fl RDW Coeff of Silva (11.0-15.0) % Plt Count (150-400) K/uL MPV (7.40-12.00) fL Neut % (Auto) (48.0-80.0) % Lymph % (Auto) (16.0-40.0) % Mcdonough % (Auto) (0.0-15.0) % Eos % (Auto) (0.0-7.0) % Baso % (Auto) (0.0-1.5) % Neut # (Auto) (1.4-5.7) K/uL Lymph # (Auto) (0.6-2.4) K/uL Mcdonough # (Auto) (0.0-0.8) K/uL Eos # (Auto) (0.0-0.7) K/uL Baso # (Auto) (0.0-0.1) K/uL Nucleated RBC % /100WBC Nucleated RBCs # K/uL Sodium (136-148) mmol/L Potassium (3.5-5.1) mmol/L Chloride (98-107) mmol/L Carbon Dioxide (21.0-32.0) mmol/L BUN (7.0-18.0) mg/dL Creatinine (0.8-1.3) mg/dL Est Cr Clr Drug Dosing mL/min Estimated GFR (MDRD) ml/min Glucose (74-106) mg/dL Calcium (8.5-10.1) mg/dL Phosphorus (2.6-4.7) mg/dL Magnesium (1.8-2.4) mg/dL Total Bilirubin (0.2-1.0) mg/dL AST (15-37) IU/L ALT (14-63) IU/L Alkaline Phosphatase (46-116) U/L Creatine Kinase (26-308) U/L Troponin I < 0.050 (0.000-0.056) ng/mL Total Protein (6.4-8.2) g/dL Albumin (3.4-5.0) g/dL Globulin (2.6-4.0) g/dL Albumin/Globulin Ratio (0.9-1.6) Lipase (73-393) U/L Influenza Type A RNA (NEGATIVE) Influenza Type B RNA (NEGATIVE) SARS-CoV-2 RNA (LUANN) (NEGATIVE) Group A Strep (PCR) NOT DETECTED (NOT DETECT) Meds: Medications Generic Name Dose Route Start Last Admin Trade Name Dean PRN Reason Stop Dose Admin Acetaminophen 650 mg 08/13/21 20:57 Acetaminophen 325 Mg Tab PO Q4H PRN Pain (Mild 1-3)/fever Amlodipine Besylate 10 mg 08/14/21 09:00 Amlodipine 5 Mg Tab PO DAILY [facility] Aspirin 81 mg 08/14/21 09:00 Aspirin 81 Mg Tab.Ec PO DAILY [facility] Atorvastatin Calcium 40 mg 08/13/21 21:00 Atorvastatin 40 Mg Tab PO BEDTIME [facility] Folic Acid 1 mg 08/13/21 21:00 Folic Acid 50 Mg/10 Ml Mdv SUBCUT DAILY [facility] Thiamine HCl 100 mg/ Sodium 101 mls @ 202 mls/hr 08/13/21 21:00 Chloride IV DAILY [facility] Lorazepam 0 mg 08/13/21 20:55 Lorazepam 2 Mg/Ml Sdv IVPUSH Q4H PRN CIWAA Protocol Non-Formulary Medication 20 mg 08/14/21 07:30 Omeprazole [Omeprazole] PO ACBREAKFAST [facility] Ondansetron HCl 4 mg 08/13/21 20:57 Ondansetron 4 Mg/2 Ml Sdv IVPUSH Q4H PRN Nausea Discontinued Medications Generic Name Dose Route Start Last Admin Trade Name Dean PRN Reason Stop Dose Admin Aspirin 324 mg 08/13/21 18:51 08/13/21 19:12 Aspirin 81 Mg Tab.Chew PO 08/13/21 18:52 324 mg ONETIME ONE Administration Magnesium Sulfate 4 gm/ Premix 100 mls @ 25 mls/hr 08/13/21 17:11 08/13/21 17 :26 IV 08/13/21 21:10 25 mls/hr ONETIME ONE Administration Sodium Chloride 1,000 mls @ 999 mls/hr 08/13/21 17:40 08/13/21 17:44 Normal Saline IV 08/13/21 18:40 999 mls/hr STAT ONE Administration Lidocaine HCl 15 ml 08/13/21 17:12 08/13/21 17:26 Lidocaine 2% Viscous Solution 15 Ml Cup PO 08/13/21 17:13 15 ml ONETIME ONE Administration Lorazepam 1 mg 08/13/21 16:33 08/13/21 16:39 Lorazepam 2 Mg/Ml Sdv IVPUSH 08/13/21 16:34 1 mg ONETIME ONE Administration Lorazepam 2 mg 08/13/21 17:37 08/13/21 17:44 Lorazepam 2 Mg/Ml Sdv IVPUSH 08/13/21 17:38 2 mg ONETIME ONE Administration Potassium Chloride 40 meq 08/13/21 17:46 08/13/21 17:58 Potassium Chloride 20 Meq Tab.Er PO 08/13/21 17:47 40 meq ONETIME ONE Administration Departure - Departure Time of Disposition: 21:23 Disposition: Admitted As Inpatient 67 Clinical Impression: Alcohol withdrawal, Pharyngitis, Chest pain, Hypomagnesemia, Hypokalemia - Discharge Information Referrals: Myrna Marroquin MD [Primary Care Provider] - Forms: ED Department Discharge Sepsis Event Note (ED) - Evaluation Sepsis Screening Result: No Definite Risk - Focused Exam Vital Signs: Vital Signs Temp Pulse Resp BP Pulse Ox 08/13/21 21:14 91 18 152/89 H 94 L 08/13/21 18:00 85 20 140/85 94 L 08/13/21 17:00 92 20 125/77 95 08/13/21 16:00 92 20 158/98 H 100 08/13/21 15:41 99.5 F 117 H 24 H 142/80 H 98 - My Orders Last 24 Hours: My Active Orders 08/13/21 20:41 Admission Status [Patient Status] [ADT] Stat - Assessment/Plan Last 24 Hours: My Active Orders 08/13/21 20:41 Admission Status [Patient Status] [ADT] Stat
[2021-08-13] MEDS ORDERED: Potassium Chloride 20 MEQ Tab.ER PO ONE (17:46)
[2021-08-13 18:40] LABS: CORONAVIRUS COVID-19 NAA NEGATIVE (NEGATIVE); INFLUENZA A NAA NEGATIVE (NEGATIVE); INFLUENZA B NAA NEGATIVE (NEGATIVE)
[2021-08-13] MEDS ORDERED: Aspirin 81 MG Tab.Chew PO ONE (18:51)
[2021-08-13] MEDS ORDERED: Ondansetron 4 MG/2 ML SDV IVPUSH PRN (20:57)
[2021-08-13] MEDS ORDERED: Thiamine 100 MG in Sodium Chloride 0.9% 100 ML IV SCH (21:00)
--- NOTE | 2021-08-13 21:04 | PCM.HP.2 ---
H&P History of Present Illness - General Date of Service: 08/13/21 Admit Problem/Dx: Admission Diagnosis/Problem Admission Diagnosis/Problem Alcohol withdrawal syndrome - History of Present Illness Initial Comments - Free Text/Narative: 71 yo male with pmh of hypertension and ETOH abuse who presents with several day history of tremors, nausea and chest pain. Patient drinks a few glasses of liqour a day. He has tried quiting in the past but develops withdrawal symptoms. Middle Chest Pain Score (Numeric/FACES): 8 - Related Data Allergies/Adverse Reactions: Allergies Allergy/AdvReac Type Severity Reaction Status Date / Time levofloxacin [From Levaquin] Allergy Rash Verified 08/13/21 15:39 Home Medications: Home Meds Aspirin [Halfprin] 81 mg PO DAILY #30 tab.ec 04/07/21 [Rx] Omeprazole 20 mg PO ACBREAKFAST #30 tablet. 04/07/21 [Rx] amLODIPine [Norvasc] 10 mg PO DAILY #30 tablet 04/07/21 [Rx] atorvaSTATin [Lipitor] 40 mg PO BEDTIME #30 tablet 04/07/21 [Rx] Past Medical History HEENT History: Reports: Impaired Vision Other HEENT History: wears glasses Cardiovascular History: Reports: High Cholesterol, Hypertension Respiratory History: Reports: Sleep Apnea Other Respiratory History: none Gastrointestinal History: Reports: Cholelithiasis, GERD, Other (See Below) Other Gastrointestinal History: occasional reflux, epigastric pain due to cholelithiasis Genitourinary History: Reports: None Musculoskeletal History: Reports: Arthritis, Other (See Below) Neurological History: Reports: None Psychiatric History: Reports: None Endocrine/Metabolic History: Reports: Obesity/BMI 30+ Hematologic History: Reports: None Immunologic History: Reports: None Oncologic (Cancer) History: Reports: None Dermatologic History: Reports: None - Infectious Disease History Infectious Disease History: Reports: Chicken Pox, Measles - Past Surgical History Head Surgeries/Procedures: Reports: None HEENT Surgical History: Reports: Naso-Sinus Surgery, Tonsillectomy Cardiovascular Surgical History: Reports: None GI Surgical History: Reports: Colonoscopy, EGD Musculoskeletal Surgical History: Reports: Shoulder Surgery, Other (See Below) Other Musculoskeletal Surgeries/Procedures:: knee sx Social & Family History - Family History Family Medical History: No Pertinent Family History - Tobacco Use Tobacco Use Status *Q: Never Tobacco User Second Hand Smoke Exposure: No - Caffeine Use Caffeine Use: Reports: Coffee - Recreational Drug Use Recreational Drug Use: No H&P Review of Systems - Review of Systems: Review Of Systems: Comprehensive ROS is negative, except as noted in HPI. Exam - Exam Exam: See Below - Vital Signs Vital Signs: Last Vital Signs Temp 37.5 C 08/13/21 15:41 Pulse 85 08/13/21 18:00 Resp 20 08/13/21 18:00 BP 140/85 08/13/21 18:00 Pulse Ox 94 L 08/13/21 18:00 Weight: 117.934 kg - Exam General: Alert, Oriented HEENT: Mucosa Moist & Anon Raices Lungs: Clear to Auscultation, Normal Respiratory Effort Cardiovascular: Regular Rate, Regular Rhythm GI/Abdominal Exam: Soft, Non-Tender Extremities: Non-Tender, No Pedal Edema Skin: Warm, Dry, Intact Neurological: Cranial Nerves Intact. No: Focal Deficit - Patient Data Lab Results Last 24 hrs: Laboratory Results - last 24 hr 08/13/21 08/13/21 08/13/21 Range/Units 16:04 16:04 17:34 WBC 9.69 (4.0-11.0) K/uL RBC 5.43 (4.50-5.90) M/uL Hgb 16.6 (13.0-17.0) g/dL Hct 48.6 (38.0-50.0) % MCV 89.5 (80.0-98.0) fL MCH 30.6 (27.0-32.0) pg MCHC 34.2 (31.0-37.0) g/dL RDW Std Deviation 44.3 (28.0-62.0) fl RDW Coeff of Silva 14 (11.0-15.0) % Plt Count 270 (150-400) K/uL MPV 10.10 (7.40-12.00) fL Neut % (Auto) 80.8 H (48.0-80.0) % Lymph % (Auto) 12.5 L (16.0-40.0) % [place] % (Auto) 6.4 (0.0-15.0) % Eos % (Auto) 0.0 (0.0-7.0) % Baso % (Auto) 0.3 (0.0-1.5) % Neut # (Auto) 7.8 H (1.4-5.7) K/uL Lymph # (Auto) 1.2 (0.6-2.4) K/uL [place] # (Auto) 0.6 (0.0-0.8) K/uL Eos # (Auto) 0.0 (0.0-0.7) K/uL Baso # (Auto) 0.0 (0.0-0.1) K/uL Nucleated RBC % 0.0 /100WBC Nucleated RBCs # 0 K/uL Sodium 137 (136-148) mmol/L Potassium 3.4 L (3.5-5.1) mmol/L Chloride 98 (98-107) mmol/L Carbon Dioxide 18.3 L (21.0-32.0) mmol/L BUN 12 (7.0-18.0) mg/dL Creatinine 1.0 (0.8-1.3) mg/dL Est Cr Clr Drug Dosing 79.92 mL/min Estimated GFR (MDRD) > 60.0 ml/min Glucose 127 H (74-106) mg/dL Calcium 9.0 (8.5-10.1) mg/dL Phosphorus 2.8 (2.6-4.7) mg/dL Magnesium 1.6 L (1.8-2.4) mg/dL Total Bilirubin 1.6 H (0.2-1.0) mg/dL AST 58 H (15-37) IU/L ALT 39 (14-63) IU/L Alkaline Phosphatase 77 (46-116) U/L Creatine Kinase 180 (26-308) U/L Troponin I < 0.050 (0.000-0.056) ng/mL Total Protein 8.5 H (6.4-8.2) g/dL Albumin 4.0 (3.4-5.0) g/dL Globulin 4.5 H (2.6-4.0) g/dL Albumin/Globulin Ratio 0.9 (0.9-1.6) Lipase 116 (73-393) U/L Influenza Type A RNA NEGATIVE (NEGATIVE) Influenza Type B RNA NEGATIVE (NEGATIVE) SARS-CoV-2 RNA (LUANN) NEGATIVE (NEGATIVE) Group A Strep (PCR) (NOT DETECT) 08/13/21 08/13/21 Range/Units 17:34 19:04 WBC (4.0-11.0) K/uL RBC (4.50-5.90) M/uL Hgb (13.0-17.0) g/dL Hct (38.0-50.0) % MCV (80.0-98.0) fL MCH (27.0-32.0) pg MCHC (31.0-37.0) g/dL RDW Std Deviation (28.0-62.0) fl RDW Coeff of Silva (11.0-15.0) % Plt Count (150-400) K/uL MPV (7.40-12.00) fL Neut % (Auto) (48.0-80.0) % Lymph % (Auto) (16.0-40.0) % [place] % (Auto) (0.0-15.0) % Eos % (Auto) (0.0-7.0) % Baso % (Auto) (0.0-1.5) % Neut # (Auto) (1.4-5.7) K/uL Lymph # (Auto) (0.6-2.4) K/uL [place] # (Auto) (0.0-0.8) K/uL Eos # (Auto) (0.0-0.7) K/uL Baso # (Auto) (0.0-0.1) K/uL Nucleated RBC % /100WBC Nucleated RBCs # K/uL Sodium (136-148) mmol/L Potassium (3.5-5.1) mmol/L Chloride (98-107) mmol/L Carbon Dioxide (21.0-32.0) mmol/L BUN (7.0-18.0) mg/dL Creatinine (0.8-1.3) mg/dL Est Cr Clr Drug Dosing mL/min Estimated GFR (MDRD) ml/min Glucose (74-106) mg/dL Calcium (8.5-10.1) mg/dL Phosphorus (2.6-4.7) mg/dL Magnesium (1.8-2.4) mg/dL Total Bilirubin (0.2-1.0) mg/dL AST (15-37) IU/L ALT (14-63) IU/L Alkaline Phosphatase (46-116) U/L Creatine Kinase (26-308) U/L Troponin I < 0.050 (0.000-0.056) ng/mL Total Protein (6.4-8.2) g/dL Albumin (3.4-5.0) g/dL Globulin (2.6-4.0) g/dL Albumin/Globulin Ratio (0.9-1.6) Lipase (73-393) U/L Influenza Type A RNA (NEGATIVE) Influenza Type B RNA (NEGATIVE) SARS-CoV-2 RNA (LUANN) (NEGATIVE) Group A Strep (PCR) NOT DETECTED (NOT DETECT) Result Diagrams: 08/13/21 16:04 08/13/21 16:04 Sepsis Event Note - Evaluation Sepsis Screening Result: No Definite Risk - Focused Exam Vital Signs: Vital Signs Temp Pulse Resp BP Pulse Ox 08/13/21 18:00 85 20 140/85 94 L 08/13/21 17:00 92 20 125/77 95 08/13/21 16:00 92 20 158/98 H 100 08/13/21 15:41 37.5 C 117 H 24 H 142/80 H 98 - Problem List (1) Alcohol withdrawal SNOMED Code(s): 443036584 ICD Code: F10.239 - ALCOHOL DEPENDENCE WITH WITHDRAWAL, UNSPECIFIED Status: Acute Current Visit: Yes (2) Alcoholic gastritis SNOMED Code(s): 8559757 ICD Code: K29.20 - ALCOHOLIC GASTRITIS WITHOUT BLEEDING Status: Acute Current Visit: Yes Qualifiers: Chronicity: acute Gastritis bleeding: without bleeding Qualified Code(s): K29.20 - Alcoholic gastritis without bleeding Problem List Initiated/Reviewed/Updated: Yes Orders Last 24hrs: Active Orders 24 hr Category Date Time Status Admission Status [Patient Status] [ADT] Stat ADT 08/13/21 20:41 Active Antiembolic Devices [RC] PER UNIT ROUTINE Care 08/13/21 20:58 Ordered Cardiac Monitoring [RC] . DIRECTED Care 08/13/21 20:59 Ordered Oxygen Therapy [RC] PRN Care 08/13/21 20:57 Ordered Up ad Edna [RC] ASDIRECTED Care 08/13/21 20:57 Ordered VTE/DVT Education [RC] PER UNIT ROUTINE Care 08/13/21 20:57 Ordered Vital Signs [RC] Q4H Care 08/13/21 20:57 Ordered Regular Diet [DIET] Diet 08/13/21 Breakfast Ordered CBC WITH AUTO DIFF [HEME] AM Lab 08/14/21 05:11 Ordered CBC WITH AUTO DIFF [HEME] AM Lab 08/15/21 05:11 Ordered CBC WITH AUTO DIFF [HEME] AM Lab 08/16/21 05:11 Ordered CBC WITH AUTO DIFF [HEME] AM Lab 08/17/21 05:11 Ordered CBC WITH AUTO DIFF [HEME] AM Lab 08/18/21 05:11 Ordered COMPREHENSIVE METABOLIC PN,CMP [CHEM] AM Lab 08/14/21 05:11 Ordered COMPREHENSIVE METABOLIC PN,CMP [CHEM] AM Lab 08/15/21 05:11 Ordered COMPREHENSIVE METABOLIC PN,CMP [CHEM] AM Lab 08/16/21 05:11 Ordered COMPREHENSIVE METABOLIC PN,CMP [CHEM] AM Lab 08/17/21 05:11 Ordered COMPREHENSIVE METABOLIC PN,CMP [CHEM] AM Lab 08/18/21 05:11 Ordered MAGNESIUM [CHEM] AM Lab 08/14/21 05:11 Ordered MAGNESIUM [CHEM] AM Lab 08/15/21 05:11 Ordered MAGNESIUM [CHEM] AM Lab 08/16/21 05:11 Ordered MAGNESIUM [CHEM] AM Lab 08/17/21 05:11 Ordered MAGNESIUM [CHEM] AM Lab 08/18/21 05:11 Ordered PHOSPHORUS [CHEM] AM Lab 08/14/21 05:11 Ordered PHOSPHORUS [CHEM] AM Lab 08/15/21 05:11 Ordered PHOSPHORUS [CHEM] AM Lab 08/16/21 05:11 Ordered PHOSPHORUS [CHEM] AM Lab 08/17/21 05:11 Ordered PHOSPHORUS [CHEM] AM Lab 08/18/21 05:11 Ordered TROPONIN I [CHEM] Stat Lab 08/14/21 03:00 Ordered Acetaminophen [TylenoL] Med 08/13/21 20:57 Ordered 650 mg PO Q4H PRN Aspirin [Halfprin] Med 08/14/21 09:00 Ordered 81 mg PO DAILY Folic Acid Med 08/13/21 21:00 Ordered 1 mg SUBCUT DAILY LORazepam [Ativan] Med 08/13/21 20:55 Ordered See Protocol IVPUSH Q4H PRN Magnesium Sulfate/Water [Magnesium Sulfate in Water 4 Med 08/13/21 17:11 Active GM/100 ML] 4 gm Premix Bag 1 bag IV ONETIME Omeprazole [Omeprazole] Med 08/14/21 07:30 Ordered 20 mg PO ACBREAKFAST Ondansetron [Zofran] Med 08/13/21 20:57 Ordered 4 mg IVPUSH Q4H PRN Thiamine [Vitamin B-1] 100 mg Med 08/13/21 21:00 Ordered Sodium Chloride 0.9% [Normal Saline] 100 ml IV DAILY amLODIPine [Norvasc] Med 08/14/21 09:00 Ordered 10 mg PO DAILY atorvaSTATin [Lipitor] Med 08/13/21 21:00 Ordered 40 mg PO BEDTIME Sequential Compression Device [OM.PC] Per Unit Routine Oth 08/13/21 20:57 Ordered Resuscitation Status Routine Resus Stat 08/13/21 20:57 Ordered Medication Orders Acetaminophen (Acetaminophen 325 Mg Tab) 650 mg PO Q4H PRN PRN Reason: Pain (Mild 1-3)/fever Amlodipine Besylate (Amlodipine 5 Mg Tab) 10 mg PO DAILY MOISES Aspirin (Aspirin 81 Mg Tab.Ec) 81 mg PO DAILY MOISES Atorvastatin Calcium (Atorvastatin 40 Mg Tab) 40 mg PO BEDTIME MOISES Folic Acid (Folic Acid 50 Mg/10 Ml Mdv) 1 mg SUBCUT DAILY MOISES Magnesium Sulfate 4 gm/ Premix 100 mls @ 25 mls/hr IV ONETIME ONE Stop: 08/13/21 21:10 Last Admin: 08/13/21 17:26 Dose: 25 mls/hr Documented by: DANUTA Thiamine HCl 100 mg/ Sodium (Chloride) 101 mls @ 202 mls/hr IV DAILY MOISES Lorazepam (Lorazepam 2 Mg/Ml Sdv) 0 mg IVPUSH Q4H PRN; Protocol PRN Reason: CIWAA Non-Formulary Medication (Omeprazole [Omeprazole]) 20 mg PO ACBREAKFAST MOISES Ondansetron HCl (Ondansetron 4 Mg/2 Ml Sdv) 4 mg IVPUSH Q4H PRN PRN Reason: Nausea Assessment/Plan Comment:: 71 yo male admitted for ETOH detox. ETOH withdrawal: will treat with CIWAA protocol with prn Ativan, thiamin and folic acid
[2021-08-13] MEDS: Folic Acid 50 MG/10 ML MDV SUBCUT SCH (21:45)
[2021-08-13] MEDS: atorvaSTATin 40 MG Tab PO SCH (23:14)
[2021-08-13] MEDS: Acetaminophen 325 MG Tab PO PRN (23:15)
[2021-08-14] MEDS: LORazepam 2 MG/ML SDV IVPUSH PRN ×2 (01:21→05:39)
[2021-08-14 03:51] LABS: BLOOD UREA NITROGEN,BUN 13 mg/dL (7.0-18.0); CARBON DIOXIDE,CO2 26.2 mmol/L (21.0-32.0); CHLORIDE,CL 104 mmol/L (98-107); GLUCOSE RANDOM 100 mg/dL (74-106); POTASSIUM,K 3.7 mmol/L (3.5-5.1); SODIUM,NA 139 mmol/L (136-148)
[2021-08-14] MEDS: Omeprazole 20 MG Cap.CR PO SCH (08:01)
[2021-08-14] MEDS: amLODIPine 5 MG Tab PO SCH (09:02)
[2021-08-14] MEDS: Folic Acid 50 MG/10 ML MDV SUBCUT SCH (09:03)
[2021-08-14] MEDS: Thiamine 200 MG/2 ML MDV IVPUSH SCH (09:03)
[2021-08-14] MEDS: Aspirin 81 MG Tab.EC PO SCH (09:03)
[2021-08-14] MEDS: Acetaminophen 325 MG Tab PO PRN (14:53)
--- NOTE | 2021-08-14 16:19 | PCM.PN ---
- General Info Date of Service: 08/14/21 - Review of Systems Systems Review Comment:: Feeling better, tremors improved - Patient Data Vitals - Most Recent: Last Vital Signs Temp 36.4 C 08/14/21 11:59 Pulse 79 08/14/21 11:59 Resp 20 08/14/21 11:59 BP 135/78 08/14/21 11:59 Pulse Ox 92 L 08/14/21 11:59 Weight - Most Recent: 115.122 kg I&O - Last 24 Hours: Intake & Output 08/14/21 08/14/21 08/14/21 06:59 14:59 22:59 Intake Total 350 Output Total 450 Balance -100 Lab Results Last 24 Hours: Laboratory Results - last 24 hr 08/13/21 08/13/21 08/13/21 Range/Units 16:04 17:34 17:34 WBC (4.0-11.0) K/uL RBC (4.50-5.90) M/uL Hgb (13.0-17.0) g/dL Hct (38.0-50.0) % MCV (80.0-98.0) fL MCH (27.0-32.0) pg MCHC (31.0-37.0) g/dL RDW Std Deviation (28.0-62.0) fl RDW Coeff of Silva (11.0-15.0) % Plt Count (150-400) K/uL MPV (7.40-12.00) fL Neut % (Auto) (48.0-80.0) % Lymph % (Auto) (16.0-40.0) % [place] % (Auto) (0.0-15.0) % Eos % (Auto) (0.0-7.0) % Baso % (Auto) (0.0-1.5) % Neut # (Auto) (1.4-5.7) K/uL Lymph # (Auto) (0.6-2.4) K/uL [place] # (Auto) (0.0-0.8) K/uL Eos # (Auto) (0.0-0.7) K/uL Baso # (Auto) (0.0-0.1) K/uL Nucleated RBC % /100WBC Nucleated RBCs # K/uL Sodium 137 (136-148) mmol/L Potassium 3.4 L (3.5-5.1) mmol/L Chloride 98 (98-107) mmol/L Carbon Dioxide 18.3 L (21.0-32.0) mmol/L BUN 12 (7.0-18.0) mg/dL Creatinine 1.0 (0.8-1.3) mg/dL Est Cr Clr Drug Dosing 79.92 mL/min Estimated GFR (MDRD) > 60.0 ml/min Glucose 127 H (74-106) mg/dL Calcium 9.0 (8.5-10.1) mg/dL Phosphorus 2.8 (2.6-4.7) mg/dL Magnesium 1.6 L (1.8-2.4) mg/dL Total Bilirubin 1.6 H (0.2-1.0) mg/dL AST 58 H (15-37) IU/L ALT 39 (14-63) IU/L Alkaline Phosphatase 77 (46-116) U/L Creatine Kinase 180 (26-308) U/L Troponin I < 0.050 (0.000-0.056) ng/mL Total Protein 8.5 H (6.4-8.2) g/dL Albumin 4.0 (3.4-5.0) g/dL Globulin 4.5 H (2.6-4.0) g/dL Albumin/Globulin Ratio 0.9 (0.9-1.6) Lipase 116 (73-393) U/L Influenza Type A RNA NEGATIVE (NEGATIVE) Influenza Type B RNA NEGATIVE (NEGATIVE) SARS-CoV-2 RNA (LUANN) NEGATIVE (NEGATIVE) Group A Strep (PCR) NOT DETECTED (NOT DETECT) 08/13/21 08/14/21 08/14/21 Range/Units 19:04 03:20 03:20 WBC 6.24 (4.0-11.0) K/uL RBC 4.66 (4.50-5.90) M/uL Hgb 14.1 (13.0-17.0) g/dL Hct 42.1 (38.0-50.0) % MCV 90.3 (80.0-98.0) fL MCH 30.3 (27.0-32.0) pg MCHC 33.5 (31.0-37.0) g/dL RDW Std Deviation 44.9 (28.0-62.0) fl RDW Coeff of Silva 14 (11.0-15.0) % Plt Count 197 (150-400) K/uL MPV 9.60 (7.40-12.00) fL Neut % (Auto) 58.9 (48.0-80.0) % Lymph % (Auto) 28.4 (16.0-40.0) % [place] % (Auto) 12.0 (0.0-15.0) % Eos % (Auto) 0.2 (0.0-7.0) % Baso % (Auto) 0.5 (0.0-1.5) % Neut # (Auto) 3.7 (1.4-5.7) K/uL Lymph # (Auto) 1.8 (0.6-2.4) K/uL [place] # (Auto) 0.8 (0.0-0.8) K/uL Eos # (Auto) 0.0 (0.0-0.7) K/uL Baso # (Auto) 0.0 (0.0-0.1) K/uL Nucleated RBC % 0.0 /100WBC Nucleated RBCs # 0 K/uL Sodium (136-148) mmol/L Potassium (3.5-5.1) mmol/L Chloride (98-107) mmol/L Carbon Dioxide (21.0-32.0) mmol/L BUN (7.0-18.0) mg/dL Creatinine (0.8-1.3) mg/dL Est Cr Clr Drug Dosing mL/min Estimated GFR (MDRD) ml/min Glucose (74-106) mg/dL Calcium (8.5-10.1) mg/dL Phosphorus (2.6-4.7) mg/dL Magnesium (1.8-2.4) mg/dL Total Bilirubin (0.2-1.0) mg/dL AST (15-37) IU/L ALT (14-63) IU/L Alkaline Phosphatase (46-116) U/L Creatine Kinase (26-308) U/L Troponin I < 0.050 < 0.050 (0.000-0.056) ng/mL Total Protein (6.4-8.2) g/dL Albumin (3.4-5.0) g/dL Globulin (2.6-4.0) g/dL Albumin/Globulin Ratio (0.9-1.6) Lipase (73-393) U/L Influenza Type A RNA (NEGATIVE) Influenza Type B RNA (NEGATIVE) SARS-CoV-2 RNA (LUANN) (NEGATIVE) Group A Strep (PCR) (NOT DETECT) 08/14/21 Range/Units 03:20 WBC (4.0-11.0) K/uL RBC (4.50-5.90) M/uL Hgb (13.0-17.0) g/dL Hct (38.0-50.0) % MCV (80.0-98.0) fL MCH (27.0-32.0) pg MCHC (31.0-37.0) g/dL RDW Std Deviation (28.0-62.0) fl RDW Coeff of Silva (11.0-15.0) % Plt Count (150-400) K/uL MPV (7.40-12.00) fL Neut % (Auto) (48.0-80.0) % Lymph % (Auto) (16.0-40.0) % [place] % (Auto) (0.0-15.0) % Eos % (Auto) (0.0-7.0) % Baso % (Auto) (0.0-1.5) % Neut # (Auto) (1.4-5.7) K/uL Lymph # (Auto) (0.6-2.4) K/uL [place] # (Auto) (0.0-0.8) K/uL Eos # (Auto) (0.0-0.7) K/uL Baso # (Auto) (0.0-0.1) K/uL Nucleated RBC % /100WBC Nucleated RBCs # K/uL Sodium 139 (136-148) mmol/L Potassium 3.7 (3.5-5.1) mmol/L Chloride 104 (98-107) mmol/L Carbon Dioxide 26.2 (21.0-32.0) mmol/L BUN 13 (7.0-18.0) mg/dL Creatinine 0.9 (0.8-1.3) mg/dL Est Cr Clr Drug Dosing 88.80 mL/min Estimated GFR (MDRD) > 60.0 ml/min Glucose 100 (74-106) mg/dL Calcium 8.3 L (8.5-10.1) mg/dL Phosphorus 3.6 (2.6-4.7) mg/dL Magnesium 2.5 H (1.8-2.4) mg/dL Total Bilirubin 1.8 H (0.2-1.0) mg/dL AST 39 H (15-37) IU/L ALT 28 (14-63) IU/L Alkaline Phosphatase 62 (46-116) U/L Creatine Kinase (26-308) U/L Troponin I (0.000-0.056) ng/mL Total Protein 6.6 (6.4-8.2) g/dL Albumin 3.1 L (3.4-5.0) g/dL Globulin 3.5 (2.6-4.0) g/dL Albumin/Globulin Ratio 0.9 (0.9-1.6) Lipase (73-393) U/L Influenza Type A RNA (NEGATIVE) Influenza Type B RNA (NEGATIVE) SARS-CoV-2 RNA (LUANN) (NEGATIVE) Group A Strep (PCR) (NOT DETECT) Med Orders - Current: Current Medications Acetaminophen (Acetaminophen 325 Mg Tab) 650 mg PO Q4H PRN PRN Reason: Pain (Mild 1-3)/fever Last Admin: 08/14/21 14:53 Dose: 650 mg Documented by: Amlodipine Besylate (Amlodipine 5 Mg Tab) 10 mg PO DAILY [facility] Last Admin: 08/14/21 09:02 Dose: 10 mg Documented by: Aspirin (Aspirin 81 Mg Tab.Ec) 81 mg PO DAILY [facility] Last Admin: 08/14/21 09:03 Dose: 81 mg Documented by: Atorvastatin Calcium (Atorvastatin 40 Mg Tab) 40 mg PO BEDTIME [facility] Last Admin: 08/13/21 23:14 Dose: 40 mg Documented by: Folic Acid (Folic Acid 50 Mg/10 Ml Mdv) 1 mg SUBCUT DAILY [facility] Last Admin: 08/14/21 09:03 Dose: 1 mg Documented by: Lorazepam (Lorazepam 2 Mg/Ml Sdv) 0 mg IVPUSH Q4H PRN; Protocol PRN Reason: CIWAA Last Admin: 08/14/21 05:39 Dose: 1 mg Documented by: Omeprazole (Omeprazole 20 Mg Cap.Cr) 20 mg PO ACBREAKFAST [facility] Last Admin: 08/14/21 08:01 Dose: 20 mg Documented by: Ondansetron HCl (Ondansetron 4 Mg/2 Ml Sdv) 4 mg IVPUSH Q4H PRN PRN Reason: Nausea Thiamine HCl (Thiamine 200 Mg/2 Ml Mdv) 100 mg IVPUSH DAILY [facility] Last Admin: 08/14/21 09:03 Dose: 100 mg Documented by: Discontinued Medications Aspirin (Aspirin 81 Mg Tab.Chew) 324 mg PO ONETIME ONE Stop: 08/13/21 18:52 Last Admin: 08/13/21 19:12 Dose: 324 mg Documented by: Magnesium Sulfate 4 gm/ Premix 100 mls @ 25 mls/hr IV ONETIME ONE Stop: 08/13/21 21:10 Last Admin: 08/13/21 17:26 Dose: 25 mls/hr Documented by: Sodium Chloride (Normal Saline) 1,000 mls @ 999 mls/hr IV STAT ONE Stop: 08/13/21 18:40 Last Admin: 08/13/21 17:44 Dose: 999 mls/hr Documented by: Thiamine HCl 100 mg/ Sodium (Chloride) 101 mls @ 202 mls/hr IV DAILY [facility] Last Admin: 08/14/21 01:19 Dose: 202 mls/hr Documented by: Lidocaine HCl (Lidocaine 2% Viscous Solution 15 Ml Cup) 15 ml PO ONETIME ONE Stop: 08/13/21 17:13 Last Admin: 08/13/21 17:26 Dose: 15 ml Documented by: Lorazepam (Lorazepam 2 Mg/Ml Sdv) 1 mg IVPUSH ONETIME ONE Stop: 08/13/21 16:34 Last Admin: 08/13/21 16:39 Dose: 1 mg Documented by: Lorazepam (Lorazepam 2 Mg/Ml Sdv) 2 mg IVPUSH ONETIME ONE Stop: 08/13/21 17:38 Last Admin: 08/13/21 17:44 Dose: 2 mg Documented by: Non-Formulary Medication (Omeprazole [Omeprazole]) 20 mg PO ACBREAKFAST [facility] Potassium Chloride (Potassium Chloride 20 Meq Tab.Er) 40 meq PO ONETIME ONE Stop: 08/13/21 17:47 Last Admin: 08/13/21 17:58 Dose: 40 meq Documented by: - Exam General: Alert, Oriented Neck: Supple Lungs: Clear to Auscultation, Normal Respiratory Effort Cardiovascular: Regular Rate, Regular Rhythm GI/Abdominal Exam: Normal Bowel Sounds, Soft, Non-Tender Extremities: Non-Tender, No Pedal Edema Skin: Warm, Dry, Intact Neurological: No New Focal Deficit - Patient Data Lab Results Last 24 hrs: Laboratory Results - last 24 hr 08/13/21 08/13/21 08/13/21 Range/Units 16:04 17:34 17:34 WBC (4.0-11.0) K/uL RBC (4.50-5.90) M/uL Hgb (13.0-17.0) g/dL Hct (38.0-50.0) % MCV (80.0-98.0) fL MCH (27.0-32.0) pg MCHC (31.0-37.0) g/dL RDW Std Deviation (28.0-62.0) fl RDW Coeff of Silva (11.0-15.0) % Plt Count (150-400) K/uL MPV (7.40-12.00) fL Neut % (Auto) (48.0-80.0) % Lymph % (Auto) (16.0-40.0) % [place] % (Auto) (0.0-15.0) % Eos % (Auto) (0.0-7.0) % Baso % (Auto) (0.0-1.5) % Neut # (Auto) (1.4-5.7) K/uL Lymph # (Auto) (0.6-2.4) K/uL [place] # (Auto) (0.0-0.8) K/uL Eos # (Auto) (0.0-0.7) K/uL Baso # (Auto) (0.0-0.1) K/uL Nucleated RBC % /100WBC Nucleated RBCs # K/uL Sodium 137 (136-148) mmol/L Potassium 3.4 L (3.5-5.1) mmol/L Chloride 98 (98-107) mmol/L Carbon Dioxide 18.3 L (21.0-32.0) mmol/L BUN 12 (7.0-18.0) mg/dL Creatinine 1.0 (0.8-1.3) mg/dL Est Cr Clr Drug Dosing 79.92 mL/min Estimated GFR (MDRD) > 60.0 ml/min Glucose 127 H (74-106) mg/dL Calcium 9.0 (8.5-10.1) mg/dL Phosphorus 2.8 (2.6-4.7) mg/dL Magnesium 1.6 L (1.8-2.4) mg/dL Total Bilirubin 1.6 H (0.2-1.0) mg/dL AST 58 H (15-37) IU/L ALT 39 (14-63) IU/L Alkaline Phosphatase 77 (46-116) U/L Creatine Kinase 180 (26-308) U/L Troponin I < 0.050 (0.000-0.056) ng/mL Total Protein 8.5 H (6.4-8.2) g/dL Albumin 4.0 (3.4-5.0) g/dL Globulin 4.5 H (2.6-4.0) g/dL Albumin/Globulin Ratio 0.9 (0.9-1.6) Lipase 116 (73-393) U/L Influenza Type A RNA NEGATIVE (NEGATIVE) Influenza Type B RNA NEGATIVE (NEGATIVE) SARS-CoV-2 RNA (LUANN) NEGATIVE (NEGATIVE) Group A Strep (PCR) NOT DETECTED (NOT DETECT) 08/13/21 08/14/21 08/14/21 Range/Units 19:04 03:20 03:20 WBC 6.24 (4.0-11.0) K/uL RBC 4.66 (4.50-5.90) M/uL Hgb 14.1 (13.0-17.0) g/dL Hct 42.1 (38.0-50.0) % MCV 90.3 (80.0-98.0) fL MCH 30.3 (27.0-32.0) pg MCHC 33.5 (31.0-37.0) g/dL RDW Std Deviation 44.9 (28.0-62.0) fl RDW Coeff of Silva 14 (11.0-15.0) % Plt Count 197 (150-400) K/uL MPV 9.60 (7.40-12.00) fL Neut % (Auto) 58.9 (48.0-80.0) % Lymph % (Auto) 28.4 (16.0-40.0) % [place] % (Auto) 12.0 (0.0-15.0) % Eos % (Auto) 0.2 (0.0-7.0) % Baso % (Auto) 0.5 (0.0-1.5) % Neut # (Auto) 3.7 (1.4-5.7) K/uL Lymph # (Auto) 1.8 (0.6-2.4) K/uL [place] # (Auto) 0.8 (0.0-0.8) K/uL Eos # (Auto) 0.0 (0.0-0.7) K/uL Baso # (Auto) 0.0 (0.0-0.1) K/uL Nucleated RBC % 0.0 /100WBC Nucleated RBCs # 0 K/uL Sodium (136-148) mmol/L Potassium (3.5-5.1) mmol/L Chloride (98-107) mmol/L Carbon Dioxide (21.0-32.0) mmol/L BUN (7.0-18.0) mg/dL Creatinine (0.8-1.3) mg/dL Est Cr Clr Drug Dosing mL/min Estimated GFR (MDRD) ml/min Glucose (74-106) mg/dL Calcium (8.5-10.1) mg/dL Phosphorus (2.6-4.7) mg/dL Magnesium (1.8-2.4) mg/dL Total Bilirubin (0.2-1.0) mg/dL AST (15-37) IU/L ALT (14-63) IU/L Alkaline Phosphatase (46-116) U/L Creatine Kinase (26-308) U/L Troponin I < 0.050 < 0.050 (0.000-0.056) ng/mL Total Protein (6.4-8.2) g/dL Albumin (3.4-5.0) g/dL Globulin (2.6-4.0) g/dL Albumin/Globulin Ratio (0.9-1.6) Lipase (73-393) U/L Influenza Type A RNA (NEGATIVE) Influenza Type B RNA (NEGATIVE) SARS-CoV-2 RNA (LUANN) (NEGATIVE) Group A Strep (PCR) (NOT DETECT) 08/14/21 Range/Units 03:20 WBC (4.0-11.0) K/uL RBC (4.50-5.90) M/uL Hgb (13.0-17.0) g/dL Hct (38.0-50.0) % MCV (80.0-98.0) fL MCH (27.0-32.0) pg MCHC (31.0-37.0) g/dL RDW Std Deviation (28.0-62.0) fl RDW Coeff of Silva (11.0-15.0) % Plt Count (150-400) K/uL MPV (7.40-12.00) fL Neut % (Auto) (48.0-80.0) % Lymph % (Auto) (16.0-40.0) % [place] % (Auto) (0.0-15.0) % Eos % (Auto) (0.0-7.0) % Baso % (Auto) (0.0-1.5) % Neut # (Auto) (1.4-5.7) K/uL Lymph # (Auto) (0.6-2.4) K/uL [place] # (Auto) (0.0-0.8) K/uL Eos # (Auto) (0.0-0.7) K/uL Baso # (Auto) (0.0-0.1) K/uL Nucleated RBC % /100WBC Nucleated RBCs # K/uL Sodium 139 (136-148) mmol/L Potassium 3.7 (3.5-5.1) mmol/L Chloride 104 (98-107) mmol/L Carbon Dioxide 26.2 (21.0-32.0) mmol/L BUN 13 (7.0-18.0) mg/dL Creatinine 0.9 (0.8-1.3) mg/dL Est Cr Clr Drug Dosing 88.80 mL/min Estimated GFR (MDRD) > 60.0 ml/min Glucose 100 (74-106) mg/dL Calcium 8.3 L (8.5-10.1) mg/dL Phosphorus 3.6 (2.6-4.7) mg/dL Magnesium 2.5 H (1.8-2.4) mg/dL Total Bilirubin 1.8 H (0.2-1.0) mg/dL AST 39 H (15-37) IU/L ALT 28 (14-63) IU/L Alkaline Phosphatase 62 (46-116) U/L Creatine Kinase (26-308) U/L Troponin I (0.000-0.056) ng/mL Total Protein 6.6 (6.4-8.2) g/dL Albumin 3.1 L (3.4-5.0) g/dL Globulin 3.5 (2.6-4.0) g/dL Albumin/Globulin Ratio 0.9 (0.9-1.6) Lipase (73-393) U/L Influenza Type A RNA (NEGATIVE) Influenza Type B RNA (NEGATIVE) SARS-CoV-2 RNA (LUANN) (NEGATIVE) Group A Strep (PCR) (NOT DETECT) Result Diagrams: 08/14/21 03:20 08/14/21 03:20 Sepsis Event Note - Evaluation Sepsis Screening Result: No Definite Risk - Focused Exam Vital Signs: Vital Signs Temp Temp Pulse Resp BP BP Pulse Ox 08/14/21 11:59 36.4 C 79 20 135/78 92 L 08/14/21 09:02 143/83 H 08/14/21 08:38 36.0 C L 22 H 143/83 H 94 L 08/14/21 05:36 36.3 C 70 16 143/81 H 93 L - Problem List & Annotations (1) Alcohol withdrawal SNOMED Code(s): 550174585 Code(s): F10.239 - ALCOHOL DEPENDENCE WITH WITHDRAWAL, UNSPECIFIED Status: Acute Current Visit: Yes (2) Alcoholic gastritis SNOMED Code(s): 9157997 Code(s): K29.20 - ALCOHOLIC GASTRITIS WITHOUT BLEEDING Status: Acute Current Visit: Yes Qualifiers: Chronicity: acute Gastritis bleeding: without bleeding Qualified Code(s): K29.20 - Alcoholic gastritis without bleeding - Problem List Review Problem List Initiated/Reviewed/Updated: Yes - My Orders Last 24 Hours: My Active Orders 08/13/21 20:55 LORazepam [Ativan] See Protocol IVPUSH Q4H PRN 08/13/21 20:57 Oxygen Therapy [RC] PRN Up ad Edna [RC] ASDIRECTED VTE/DVT Education [RC] PER UNIT ROUTINE Vital Signs [RC] Q4H Acetaminophen [TylenoL] 650 mg PO Q4H PRN Ondansetron [Zofran] 4 mg IVPUSH Q4H PRN Sequential Compression Device [OM.PC] Per Unit Routine Resuscitation Status Routine 08/13/21 20:58 Antiembolic Devices [RC] PER UNIT ROUTINE 08/13/21 20:59 Cardiac Monitoring [RC] . DIRECTED 08/13/21 21:00 Folic Acid 1 mg SUBCUT DAILY atorvaSTATin [Lipitor] 40 mg PO BEDTIME 08/14/21 03:01 Telemetry Monitoring [Cardiac Monitoring] [RC] Q8H 08/14/21 07:30 Omeprazole 20 mg PO ACBREAKFAST 08/14/21 09:00 Aspirin [Halfprin] 81 mg PO DAILY Thiamine [Vitamin B-1] 100 mg IVPUSH DAILY amLODIPine [Norvasc] 10 mg PO DAILY 08/15/21 05:11 CBC WITH AUTO DIFF [HEME] AM COMPREHENSIVE METABOLIC PN,CMP [CHEM] AM MAGNESIUM [CHEM] AM PHOSPHORUS [CHEM] AM 08/16/21 05:11 CBC WITH AUTO DIFF [HEME] AM COMPREHENSIVE METABOLIC PN,CMP [CHEM] AM MAGNESIUM [CHEM] AM PHOSPHORUS [CHEM] AM 08/17/21 05:11 CBC WITH AUTO DIFF [HEME] AM COMPREHENSIVE METABOLIC PN,CMP [CHEM] AM MAGNESIUM [CHEM] AM PHOSPHORUS [CHEM] AM 08/18/21 05:11 CBC WITH AUTO DIFF [HEME] AM COMPREHENSIVE METABOLIC PN,CMP [CHEM] AM MAGNESIUM [CHEM] AM PHOSPHORUS [CHEM] AM - Plan Plan:: 71 yo male admitted for ETOH detox. ETOH withdrawal: we will CIWAA protocol with prn Ativan, thiamin and folic acid DVT prophylaxis: SCDs
[2021-08-14] MEDS: atorvaSTATin 40 MG Tab PO SCH (21:36)
[2021-08-15] MEDS: Omeprazole 20 MG Cap.CR PO SCH (06:58)
[2021-08-15 07:52] LABS: BLOOD UREA NITROGEN,BUN 12 mg/dL (7.0-18.0); CARBON DIOXIDE,CO2 24.6 mmol/L (21.0-32.0); CHLORIDE,CL 103 mmol/L (98-107); GLUCOSE RANDOM 101 mg/dL (74-106); POTASSIUM,K 3.8 mmol/L (3.5-5.1); SODIUM,NA 136 mmol/L (136-148)
[2021-08-15] MEDS: amLODIPine 5 MG Tab PO SCH (08:39)
[2021-08-15] MEDS: Aspirin 81 MG Tab.EC PO SCH (08:39)
[2021-08-15] MEDS: Folic Acid 50 MG/10 ML MDV SUBCUT SCH (08:40)
[2021-08-15] MEDS: Thiamine 200 MG/2 ML MDV IVPUSH SCH (08:41)
[2021-08-15 12:00] VITALS: BP 131/89; PULSE 79
--- NOTE | 2021-08-15 13:41 | PCM.DCSUM1 ---
Discharge Summary - Discharge Data Discharge Date: 08/15/21 Discharge Disposition: Home, Self-Care 01 Condition: Stable - Referral to Home Health Primary Care Physician: Myrna Marroquin MD - Discharge Diagnosis/Problem(s) (1) Alcohol withdrawal SNOMED Code(s): 713935473 ICD Code: F10.239 - ALCOHOL DEPENDENCE WITH WITHDRAWAL, UNSPECIFIED Status: Acute Current Visit: Yes (2) Alcoholic gastritis SNOMED Code(s): 6169496 ICD Code: K29.20 - ALCOHOLIC GASTRITIS WITHOUT BLEEDING Status: Acute Current Visit: Yes Qualifiers: Chronicity: acute Gastritis bleeding: without bleeding Qualified Code(s): K29.20 - Alcoholic gastritis without bleeding - Patient Summary/Data Hospital Course: 71 yo male with pmh of hypertension and ETOH abuse who presents with several day history of tremors, nausea and chest pain. Patient drinks a few glasses of liquor a day. He has tried quieting in the past but develops withdrawal symptoms. He was admitted for ETOH withdrawal. He was placed on CIWAA protocol with prn Ativan. Patient ruled out for acute coronary syndrome with serial negative cardiac enzymes. His symptoms have resolved and has not required any Ativan for over 24 hours. Patient is to be discharged home to have follow up with Dr. Burrell. - Patient Instructions Diet: Regular Diet as Tolerated, No Alcoholic Beverages Activity: As Tolerated - Discharge Plan Home Medications: Home Meds Aspirin [Halfprin] 81 mg PO DAILY #30 tab.ec 04/07/21 [Rx] Omeprazole 20 mg PO ACBREAKFAST #30 tablet. 04/07/21 [Rx] amLODIPine [Norvasc] 10 mg PO DAILY #30 tablet 04/07/21 [Rx] atorvaSTATin [Lipitor] 40 mg PO BEDTIME #30 tablet 04/07/21 [Rx] Multivit-Min/FA/Lycopen/Lutein [Centrum Silver Men Tablet] 1 each PO DAILY 08/13/21 [History] Rutin/Hesp/Bioflav/C/Voohit406 [Bioflex] 1 each PO DAILY 08/13/21 [History] Patient Handouts: Hypomagnesemia, Hypokalemia, Nonspecific Chest Pain, Adult, [id number], Pharyngitis, [id number], Alcohol Withdrawal Syndrome, [id number] Referrals: Ayo Burrell MD [Ordering Only Provider] - 08/19/21 3:00 pm Pawel Snyder MD [Ordering Only Provider] - - Discharge Summary/Plan Comment DC Time >30 min.: No Total # of Minutes for Discharge Time: 20 - Patient Data Vitals - Most Recent: Last Vital Signs Temp 36.1 C 08/15/21 11:45 Pulse 79 08/15/21 11:45 Resp 17 08/15/21 11:45 BP 131/89 08/15/21 11:45 Pulse Ox 94 L 08/15/21 11:45 Weight - Most Recent: 115.122 kg I&O - Last 24 hours: Intake & Output 08/14/21 08/15/21 08/15/21 22:59 06:59 14:59 Intake Total 1200 Output Total 700 300 Balance 500 -300 Lab Results - Last 24 hrs: Laboratory Results - last 24 hr 08/15/21 08/15/21 Range/Units 07:17 07:17 WBC 5.20 (4.0-11.0) K/uL RBC 4.86 (4.50-5.90) M/uL Hgb 14.8 (13.0-17.0) g/dL Hct 44.1 (38.0-50.0) % MCV 90.7 (80.0-98.0) fL MCH 30.5 (27.0-32.0) pg MCHC 33.6 (31.0-37.0) g/dL RDW Std Deviation 44.1 (28.0-62.0) fl RDW Coeff of Silva 13 (11.0-15.0) % Plt Count 203 (150-400) K/uL MPV 10.10 (7.40-12.00) fL Neut % (Auto) 59.4 (48.0-80.0) % Lymph % (Auto) 28.8 (16.0-40.0) % [place] % (Auto) 10.8 (0.0-15.0) % Eos % (Auto) 0.8 (0.0-7.0) % Baso % (Auto) 0.2 (0.0-1.5) % Neut # (Auto) 3.1 (1.4-5.7) K/uL Lymph # (Auto) 1.5 (0.6-2.4) K/uL [place] # (Auto) 0.6 (0.0-0.8) K/uL Eos # (Auto) 0.0 (0.0-0.7) K/uL Baso # (Auto) 0.0 (0.0-0.1) K/uL Nucleated RBC % 0.0 /100WBC Nucleated RBCs # 0 K/uL Sodium 136 (136-148) mmol/L Potassium 3.8 (3.5-5.1) mmol/L Chloride 103 (98-107) mmol/L Carbon Dioxide 24.6 (21.0-32.0) mmol/L BUN 12 (7.0-18.0) mg/dL Creatinine 0.9 (0.8-1.3) mg/dL Est Cr Clr Drug Dosing 88.80 mL/min Estimated GFR (MDRD) > 60.0 ml/min Glucose 101 (74-106) mg/dL Calcium 8.6 (8.5-10.1) mg/dL Phosphorus 3.9 (2.6-4.7) mg/dL Magnesium 2.1 (1.8-2.4) mg/dL Total Bilirubin 2.2 H (0.2-1.0) mg/dL AST 45 H (15-37) IU/L ALT 29 (14-63) IU/L Alkaline Phosphatase 67 (46-116) U/L Total Protein 7.3 (6.4-8.2) g/dL Albumin 3.3 L (3.4-5.0) g/dL Globulin 4.0 (2.6-4.0) g/dL Albumin/Globulin Ratio 0.8 L (0.9-1.6) Med Orders - Current: Current Medications Acetaminophen (Acetaminophen 325 Mg Tab) 650 mg PO Q4H PRN PRN Reason: Pain (Mild 1-3)/fever Last Admin: 08/14/21 14:53 Dose: 650 mg Documented by: Amlodipine Besylate (Amlodipine 5 Mg Tab) 10 mg PO DAILY [facility] [place] Last Admin: 08/15/21 08:39 Dose: 10 mg Documented by: Aspirin (Aspirin 81 Mg Tab.Ec) 81 mg PO DAILY [facility] [place] Last Admin: 08/15/21 08:39 Dose: 81 mg Documented by: Atorvastatin Calcium (Atorvastatin 40 Mg Tab) 40 mg PO BEDTIME [facility] [place] Last Admin: 08/14/21 21:36 Dose: 40 mg Documented by: Folic Acid (Folic Acid 50 Mg/10 Ml Mdv) 1 mg SUBCUT DAILY [facility] [place] Last Admin: 08/15/21 08:40 Dose: 1 mg Documented by: Lorazepam (Lorazepam 2 Mg/Ml Sdv) 0 mg IVPUSH Q4H PRN; Protocol PRN Reason: CIWAA Last Admin: 08/14/21 05:39 Dose: 1 mg Documented by: Omeprazole (Omeprazole 20 Mg Cap.Cr) 20 mg PO ACBREAKFAST [facility] [place] Last Admin: 08/15/21 06:58 Dose: 20 mg Documented by: Ondansetron HCl (Ondansetron 4 Mg/2 Ml Sdv) 4 mg IVPUSH Q4H PRN PRN Reason: Nausea Thiamine HCl (Thiamine 200 Mg/2 Ml Mdv) 100 mg IVPUSH DAILY [facility] [place] Last Admin: 08/15/21 08:41 Dose: 100 mg Documented by: Discontinued Medications Aspirin (Aspirin 81 Mg Tab.Chew) 324 mg PO ONETIME ONE Stop: 08/13/21 18:52 Last Admin: 08/13/21 19:12 Dose: 324 mg Documented by: Magnesium Sulfate 4 gm/ Premix 100 mls @ 25 mls/hr IV ONETIME ONE Stop: 08/13/21 21:10 Last Admin: 08/13/21 17:26 Dose: 25 mls/hr Documented by: Sodium Chloride (Normal Saline) 1,000 mls @ 999 mls/hr IV STAT ONE Stop: 08/13/21 18:40 Last Admin: 08/13/21 17:44 Dose: 999 mls/hr Documented by: Thiamine HCl 100 mg/ Sodium (Chloride) 101 mls @ 202 mls/hr IV DAILY [facility] [place] Last Admin: 08/14/21 01:19 Dose: 202 mls/hr Documented by: Lidocaine HCl (Lidocaine 2% Viscous Solution 15 Ml Cup) 15 ml PO ONETIME ONE Stop: 08/13/21 17:13 Last Admin: 08/13/21 17:26 Dose: 15 ml Documented by: Lorazepam (Lorazepam 2 Mg/Ml Sdv) 1 mg IVPUSH ONETIME ONE Stop: 08/13/21 16:34 Last Admin: 08/13/21 16:39 Dose: 1 mg Documented by: Lorazepam (Lorazepam 2 Mg/Ml Sdv) 2 mg IVPUSH ONETIME ONE Stop: 08/13/21 17:38 Last Admin: 08/13/21 17:44 Dose: 2 mg Documented by: Non-Formulary Medication (Omeprazole [Omeprazole]) 20 mg PO ACBREAKFAST MOISES Potassium Chloride (Potassium Chloride 20 Meq Tab.Er) 40 meq PO ONETIME ONE Stop: 08/13/21 17:47 Last Admin: 08/13/21 17:58 Dose: 40 meq Documented by:
== END 2021-08-15 14:10 | disposition home or self-care (01) | DRG 897 ==
LOC: MW.ED 15:32 → MW.MS 20:41
PROVIDERS: ADMIT Internal Medicine; ATTEND Internal Medicine
DX: F10.939 Alcohol use, unspecified with withdrawal, unspecified (principal); F10.239 Alcohol dependence with withdrawal, unspecified; R07.9 Chest pain, unspecified; J02.9 Acute pharyngitis, unspecified; E83.42 Hypomagnesemia; E87.6 Hypokalemia; Y90.9 Presence of alcohol in blood, level not specified; K29.20 Alcoholic gastritis without bleeding; I10 Essential (primary) hypertension; H54.7 Unspecified visual loss; E78.00 Pure hypercholesterolemia, unspecified; G47.30 Sleep apnea, unspecified; K21.9 Gastro-esophageal reflux disease without esophagitis; M19.90 Unspecified osteoarthritis, unspecified site; E66.9 Obesity, unspecified; Z79.82 Long term (current) use of aspirin; Z79.899 Other long term (current) drug therapy; Z88.1 Allergy status to other antibiotic agents; Z90.89 Acquired absence of other organs; Z98.890 Other specified postprocedural states; Z20.822 Contact with and (suspected) exposure to COVID-19; Z68.32 Body mass index [BMI] 32.0-32.9, adult
CPT/HCPCS: 0240U; 36415; 71045; 80053; 82550; 83690; 83735; 84100; 84484; 85025; 87651; 93005; 96365; 96366; 96375; 96376; 99285; A9270-GY; J2060; J3411; J3475; J7030